=== PATIENT | male | born 1950 | race American Indian/Alaskan Native ===

== ENCOUNTER 2016-05-29 16:14 | Inpatient (IN) | payer OTHER ==
[~2016-05-29] VITALS: Ht 175.3 cm; Wt 62.8 kg
--- NOTE | ~2016-05-29 | EKG ---
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
--- NOTE | ~2016-05-29 | EKG ---
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 : 1950 Requested By: Jhoan Carpenter Order Number: [id number] MD: Los Poe Measurements Intervals [place] Rate: 97 P: 74 TN: 148 QRS: 64 QRSD: 105 T: 48 QT: 417 QTc: 530 Interpretive Statements Sinus rhythm ST elevation, consider pericarditis Prolonged QT interval Baseline wander in lead(s) V6 Compared to ECG 06/03/2016 14:51:57 ST segment elevation is more pronounced Electronically Signed On 06-04-2016 8:55:57 CDT by Los Poe [email or web address] <ELECTRONICALLY SIGNED> By: Los Poe MD, [facility] 06/04/16 0855 0644 0644 Los Poe MD, [facility] /EPI
--- NOTE | ~2016-05-29 | O ---
[facility] [place] [address] OPERATIVE REPORT Name: JANESSA MCCRAY Room #: 217-P [facility] IN M.R.#: [id number] Admission: 05/29/16 Attend Phys: Ady Dean MD Discharge: 06/09/16 Date of : 50 Report #: [id number] THIS REPORT FOR: //name// CC: SERVANDO physician/PCP Ady Dean DATE OF SERVICE: 06/03/2016 PREOPERATIVE DIAGNOSIS: Coronary artery disease. POSTOPERATIVE DIAGNOSIS: Coronary artery disease. OPERATION: Coronary artery bypass x 4 including left internal mammary artery to left anterior descending artery, saphenous vein to ramus intermedius and marginal and saphenous vein to posterior descending artery and endoscopic harvest, left greater saphenous vein. SURGEON: Teofilo Ta MD SALES EXHIBITOR: Jayden. ANESTHESIA: General. INDICATION: The patient is a 65-year-old who was admitted with a syncopal episode. The patient sustained a humeral fracture during this. He was found to have severe 3-vessel coronary artery disease including subtotal occlusion of the right coronary, total occlusion of a marginal artery and high-grade lesions in the ramus intermedius and a long tubular mid LAD stenosis. Left ventricular function is satisfactory. FINDINGS AND TECHNIQUE: After general anesthesia was established, saphenous vein was harvested using an endoscopic approach. Exposure was obtained through median sternotomy. Left internal mammary artery was harvested from chest wall. Pericardial well was made. Cannulation sutures were placed. Heparin was given. Aorta was cannulated. Right atrium was cannulated. Cardioplegia needle was positioned in the aortic root. Retrograde cardioplegic catheter was placed in the coronary sinus. Cardiopulmonary bypass was established. The aorta was cross clamped. Antegrade, then retrograde cardioplegia were given. Ice was poured in the pericardial well. The heart was stopped. During electromechanical arrest, the distal anastomoses were performed and end-to-side anastomosis was made between vein and the posterior descending artery. This was a 1.5 mm vessel. Cold cardioplegia was given. A separate segment of vein was sewn in end-to-side fashion to the large marginal. This was an occluded vessel, but was good target, were bypassed and was approximately 1.6 [facility] [address] [place] [address] OPERATIVE REPORT Name: JANESSA MCCRAY Room #: 217-P [facility] IN [facility].#: [id number] Admission: 05/29/16 Attend Phys: Ady Dean MD Discharge: 06/09/16 Date of : 50 Report #: [id number] mm. Cold cardioplegia was given. Same segment of vein was sewn in [id number] fashion to the large ramus intermedius. This was a 1.7 mm target. Cold cardioplegia was given. Left internal mammary artery was sewn in end-to-side fashion to the left anterior descending artery. This was beyond that long tibial and mid LAD lesion. The LAD was approximately 1.6 mm, were bypassed. Good flow was ascertained with the temperature technique. Cold cardioplegia was given. Two proximal anastomoses were performed. When these were complete, warm retrograde cardioplegia was given followed by warm continuous blood to the coronary sinus. When this infusion was complete, the crossclamp was removed, de-airing maneuvers were performed. The anastomoses were inspected and found to be satisfactory. As the patient warmed, nice cardiac activity resumed, chest tubes and pacing wires were placed, a marker was placed around the proximal anastomoses. When the patient was warmed, he was weaned from cardiopulmonary bypass. Venous cannula was removed. Protamine was given, the aortic cannula was removed. Flows were measured in the bypass grafts. Flow in the graft to the right side was 18 mL per minute. Flow in the graft to the left side was 56 mL per minute. A good Doppler signal was audible in the internal mammary artery. Total cross clamp time was 88 minutes. Total pump time was 108 minutes. When hemostasis was satisfactory, chest was irrigated with antibiotic solution and closed in the usual fashion. The patient was taken to the Intensive Care Unit in good condition having tolerated the procedure well. <ELECTRONICALLY SIGNED> By: Teofilo Ta MD 06/12/16813 09 37 Teofilo Ta MD /nt
--- NOTE | ~2016-05-29 | EKG ---
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 : 1950 Requested By: Teofilo Ta Order Number: [id number] MD: Los Poe Measurements Intervals [place] Rate: 76 P: 72 AR: 162 QRS: 65 QRSD: 107 T: 58 QT: 434 QTc: 489 Interpretive Statements Sinus rhythm ST elevation, consider pericarditis Baseline wander in lead(s) V6 Compared to ECG 06/04/2016 06:44:34 no significant change was found Electronically Signed On 06-07-2016 9:40:15 CDT by Los Poe [email or web address] <ELECTRONICALLY SIGNED> By: Los Poe MD, [facility] 06/07/16 0940 0656 0656 Los Poe MD, [facility] /EPI
--- NOTE | ~2016-05-29 | EKG ---
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
--- NOTE | ~2016-05-29 | CATHLAB ---
[place] [address] [employer] [place] [address] INVASIVE PROCEDURE REPORT Name: JANESSA Room #: 313-P [facility] IN [facility]#: [id number] Admission: 05/29/16 Attend Phys: Ady Dean MD Discharge: Date of : 50 Date of Service: 05/31/16 1200 Report #: [id number] THIS REPORT FOR: //name// CC: SERVANDO physician/PCP Ady Dean DATE OF SERVICE: 05/31/2016 INDICATION: This is a 65-year-old male patient with diabetes and non-ST segment elevation myocardial infarction. PROCEDURES: 1. Left heart catheterization. 2. Selective left and right coronary angiography. 3. Measurement of left ventricular end diastolic pressures. AIR QUALITY CHEMIST: Mahesh Chatman MD BRIEF DESCRIPTION OF PROCEDURE: After informed consent was obtained, the patient was brought to the cardiac catheterization laboratory in stable condition. The patient's right groin was prepped and draped in the usual sterile manner after which lidocaine was then instilled. Utilizing a modified Seldinger technique, the right femoral artery was then accessed. Under fluoroscopic visualization using selective coronary catheters, the right and left coronaries were opacified and visualized. The left ventriculogram was likewise imaged per standard protocol with EDP being measured. Subsequent to this, the sheath was removed, hemostasis achieved. The patient tolerated the procedure well. There were no complications. FINDINGS: 1. RHYTHM: The patient's rhythm was sinus throughout the entire procedure. 2. HEMODYNAMICS: A. Opening aortic pressure: 201/103. B. Left ventricular end diastolic pressures 20-25. C. Post-procedure aortic pressure: 167/98. 3. FLUOROSCOPY: Under fluoroscopic visualization, there was evidence of calcific plaquing on the epicardial coronary arteries. No calcific plaquing on the valvular or intramyocardial structures of the heart. 4. ANGIOGRAPHY: This is a right coronary dominant system. A. Left main is normal origin and caliber, has 30-40% luminal irregularities as it bifurcates into left anterior descending and left circumflex coronary artery. B. Left anterior descending is a moderate caliber type 3 vessel which has luminal irregularities of less than 50% in its proximal portion, gives rise to the diagonal branches and has luminal irregularities, do not appear to be flow limiting. In the mid portion of the mid LAD and proximal half of the distal LAD, there is a segment of disease that culminates with a region of 75% [facility] [address] [place] [address] INVASIVE PROCEDURE REPORT Name: JANESSA MCCRAY Room #: 313-P [facility] IN [facility].#: [id number] Admission: 05/29/16 Attend Phys: Ady Dean MD Discharge: Date of : 50 Date of Service: 05/31/16 1200 Report #: [id number] stenosis. This appears to be at least 30-35 mm in length. The vessel reconstitutes, hooks the apex and terminates in the posterior aspect of the left ventricle. D. Circumflex is a moderate caliber vessel, which has diffuse moderate irregularities throughout its course. Proximally has a focal 70% lesion. The first marginal branch fills the hetero and homocollateral as a vessel and is felt poorly occluded proximally. The terminal circumflex continues in the AV groove posteriorly free of high-grade disease. E. Right coronary artery is of normal origin and caliber and has diffuse moderate irregularities in its proximal course until prior to the acute margin whether there is a 95-99% eccentric lesion. The vessel reconstitutes itself posteriorly giving rise to posterior descending artery and posterior wall circulation. The posterior descending artery has a proximal portion that appears to be 50% . IMPRESSION: 1. Coronary artery disease, severe 3-vessel with an elevated SYNTAX score. 2. Abnormal hemodynamics with presence of systemic hypertension and mildly elevated left ventricular end-diastolic pressures. <ELECTRONICALLY SIGNED> By: Mahesh Chatman MD 05/31/16 1352 1200 1321 Mahesh Chatman MD /nt
--- NOTE | ~2016-05-29 | 2DMMODE ---
[facility] [address] [place] [address] 2 D/M-MODE ECHOCARDIOGRAM Name: JANESSA MCCRAY Room #: 313-P [facility] IN [facility]#: [id number] Admission: 05/29/16 Attend Phys: Ady Dean MD Discharge: Date of : 50 Date of Service: 05/30/16 1052 Report #: [id number] THIS REPORT FOR: //name// APPROVED REPORT Study performed: 05/30/2016 09:38:36 EXAM: Comprehensive 2D, Doppler, and color-flow Echocardiogram Patient Location: Bedside Blood Pressure: 187/89 mmHg HR: 83 bpm Other Information Study Quality: Good Indications Diabetes Hypertension/HDD 2D Dimensions RVDd: 29.36 mm LVEF(%): 52.08 (>50%) IVSd: 8.62 (7-11mm) LVOT Diam: 19.00 (18-24mm) LVDd: 43.67 mm PWd: 10.02 (7-11mm) Ascending Aorta: 32.82 mm LVDs: 32.10 (25-40mm) IVC: 14.00 mm Aortic Root: 35.15 mm Lovell's LVEF: 52.08 % Volumes Left Atrial Volume (Systole) Single Plane 4CH: 31.22 mL Single Plane 2CH: 27.00 mL LA ESV Index: 20.00 mL/m2 Aortic Valve AoV Peak Mihai.: 1.15 m/s AO Peak Gr.: 5.25 mmHg LV Max P.20 mmHg LV Max: 0.89 m/s Mitral Valve MV PHT: 56.87 ms MV E Max Mihai.: 0.77 m/s E/A Ratio: 0.7 MV A Mihai.: 1.13 m/s MV Decel. Time: 196.09 ms [facility] [place] [address] 2 D/M-MODE ECHOCARDIOGRAM Name: JANESSA MCCRAY [place] Room #: 313-P ADM IN M.R.#: [id number] Admission: 05/29/16 Attend Phys: Ady Dean MD Discharge: Date of : 50 Date of Service: 05/30/16 1052 Report #: [id number] Pulmonary Valve PV Peak Mihai.: 0.95 m/s PV Peak Gr.: 3.59 mmHg Tricuspid Valve RAP Estimate: 5.00 mmHg Left Ventricle The left ventricle is normal size. There is normal LV segmental wall motion. There is normal left ventricular wall thickness. Left ventricular systolic function is normal. The left ventricular ejection fraction is within the normal range. LVEF is 50-55%. Grade I - abnormal relaxation pattern. Right Ventricle The right ventricle is normal size. The right ventricular systolic function is normal. Atria The left atrium size is normal. The right atrium size is normal. Aortic Valve The aortic valve is normal in structure. Aortic valve is calcified. No aortic regurgitation is present. There is no aortic valvular stenosis. Mitral Valve The mitral valve is normal in structure. Trace mitral regurgitation. Tricuspid Valve The tricuspid valve is normal in structure. There is no tricuspid valve regurgitation noted. Pulmonic Valve The pulmonary valve is normal in structure. There is no pulmonic valvular regurgitation. Great Vessels The aortic root is normal in size. IVC is normal in size and collapses >50% with inspiration. Pericardium There is no pericardial effusion. [facility] [place] [address] 2 D/M-MODE ECHOCARDIOGRAM Name: HIGHJANESSA TESSA Room #: 313-P [facility] IN .R.#: [id number] Admission: 05/29/16 Attend Phys: Ady Dean MD Discharge: Date of : 50 Date of Service: 05/30/16 1052 Report #: [id number] <Conclusion> The left ventricle is normal size. LVEF is 50-55%. The aortic valve is normal in structure. Aortic valve is calcified. Trace mitral regurgitation. <ELECTRONICALLY SIGNED> By: Mahesh Chatman MD 05/30/16 1052 51 1052 Mahesh Chatman MD /INF
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
--- NOTE | ~2016-05-29 | HC ---
[facility] [place] [address] CONSULTATION Name: JANESSA MCCRAY Room #: 216-P ADM IN M.R.#: [id number] Admission: 05/29/16 Attend Phys: Ady Dean MD Discharge: Date of : 50 Report #: [id number] THIS REPORT FOR: //name// CC: SERVANDO physician/PCP Ady Dean DATE OF SERVICE: 05/30/2016 CHIEF COMPLAINT: Right humerus fracture. HISTORY OF PRESENT ILLNESS: This 65-year-old gentleman with cardiovascular disease and diabetes lives independently. He apparently fainted and fell, landing on the right shoulder. X-rays confirm a short oblique fracture in the proximal metaphyseal region with mild displacement. The shoulder itself and the rest of the bony architecture looks okay. At the time of my evaluation, he is alert and oriented. He seems to be reasonably comfortable protecting the arm in a sling. He denies any other areas of significant musculoskeletal discomfort. He seems to have satisfactory movement of the neck and back. The left upper extremity reveals good alignment and range of motion without much discomfort. The right shoulder is uncomfortable to palpation and with any gentle movement. There is no obvious deformity and there is only moderate swelling about the upper arm. The elbow, forearm, wrist and hand appear to be normal when tested with gentle range of motion. Neurologic and vascular status appeared to be intact. He denies any symptoms with regard to the lower back, hips or lower extremities. X-rays of the right humerus reveal a slightly displaced oblique fracture in the proximal metaphyseal region about 3-4 cm below the surgical neck. The rest of the humerus looks okay. I have discussed this at some length with the patient reviewing treatment options including conservative nonsurgical management with a sling and fracture brace or surgical repair. While I think surgical repair would allow more rapid return to function and comfort, I am concerned as he has other medical and cardiac problems. At this point, I believe he is scheduled for a cardiac catheterization tomorrow. He is certainly not a candidate for an anesthetic and surgery until his cardiac issues can be evaluated and resolved. At this point, the patient states he would prefer to avoid any surgery and wants to continue with arm sling protection alone. We will start with that approach and see how he does over the coming few days and see what the response is with regard to his cardiac evaluation. If he should be stable from a general medical and cardiac [address] [address] CONSULTATION Name: JANESSA MCCRAY Room #: 216-P [facility] IN .R.#: [id number] Admission: 05/29/16 Attend Phys: Ady Dean MD Discharge: Date of : 50 Report #: [id number] point of view and feels he is not doing well with the conservative approach, then we could certainly consider surgical repair sometime next week. <ELECTRONICALLY SIGNED> By: Fahad Mai MD 06/02/16 1050 1035 1720 Fahad Mai MD /nt
--- NOTE | ~2016-05-29 | HC ---
[facility] [place] [address] CONSULTATION Name: JANESSA Room #: 217-P [facility] IN ..#: [id number] Admission: 05/29/16 Attend Phys: Ady Dean MD Discharge: 06/09/16 Date of : 50 Report #: [id number] THIS REPORT FOR: //name// CC: SERVANDO physician/PCP Ady Dean DATE OF SERVICE: 05/31/2016 HISTORY OF PRESENT ILLNESS: We were asked to see the patient by Dr. Chatman. The patient is a 65-year-old with coronary artery disease. The patient was admitted on 05/29 after a syncopal episode. The patient fell when he was walking out of his bathroom and "blacked out". The patient fell onto his right shoulder and he sustained a humerus fracture. We note that since admission, the patient was found to have elevated troponin as part of the workup and this led to cardiac catheterization that showed severe 3-vessel coronary disease including a 70% mid LAD lesion, 90% circumflex, 99% first marginal and 99% right coronary lesions. Left ventricular function satisfactory by echo. PAST MEDICAL HISTORY: Past history is significant for diabetes mellitus, poorly controlled, non-insulin dependent. HOME MEDICATIONS: None. ALLERGIES: None known. SOCIAL HISTORY: The patient claims he smokes a few cigarettes daily. FAMILY HISTORY: Not significant. REVIEW OF SYSTEMS: CONSTITUTIONAL: No fever or chills, malaise. EYES: No eye pain, visual change. HEENT: Negative for hearing changes, ear pain, neck pain or stiffness. RESPIRATORY: Negative for cough, shortness of breath or hemoptysis. CARDIAC: Negative for angina or palpitations. GASTROINTESTINAL: Negative for nausea, vomiting, diarrhea or blood. GENITOURINARY: Negative for burning, frequency or blood. MUSCULOSKELETAL: As mentioned, right shoulder pain related to fall. No other myalgias or weakness. NEUROLOGIC: As mentioned, loss of consciousness, but no sustained motor or sensory deficit. SKIN: No rash or infection. PHYSICAL EXAMINATION: [facility] [address] [place] [address] CONSULTATION Name: JANESSA MCCRAY VERONA Room #: 217-P [facility] IN ..#: [id number] Admission: 05/29/16 Attend Phys: Ady Dean MD Discharge: 06/09/16 Date of : 50 Report #: [id number] VITAL SIGNS: Temperature 36.7, pulse rate 94, respiratory rate 16 and blood pressure 155/98. HEENT: No scleral icterus. No arcus. Pupils are round and equal. Gaze conjugate. Normocephalic. No oral injection. No nasal injection. NECK: No lymphadenopathy, no bruit. CHEST: Clear to auscultation. HEART: Rhythm regular. No murmurs. ABDOMEN: Soft. No mass, no tenderness. EXTREMITIES: No clubbing, cyanosis or edema. A 2+ dorsalis pedis pulses. Saphenous vein appears satisfactory. SKIN: No rash or infection. MUSCULOSKELETAL: Right arm is in sling and swathe. Other than that, no other bone or joint deformity or dyssymmetry. NEUROLOGIC: No motor or sensory dysfunction. PSYCHIATRIC: Mood is neither artificially elevated nor flat, shows insight into problem. ASSESSMENT: The patient has important 3-vessel coronary disease that was manifested by or exposed by the syncopal episode. I do not see that the fracture should be a contraindication to care and I will discuss timing of surgery with Dr. Chatman, but we are prepared to go ahead on Friday with surgery. Risks and details of all of this were discussed. Options and alternatives were reviewed. The patient understands all of this and agrees with this approach. Thank you for the consult. <ELECTRONICALLY SIGNED> By: Teofilo Ta MD 06/12/16 0814 1413 1435 Teofilo Ta MD /nt
[~2016-05-29 16:14] MED LIST: CEFTIN500 MG PO; COLACE 100 MG100 MG; COLACE100 MG PO; EDTA; FLAGYL500 MG PO; GLIPIZIDE 5 MG T5 MG PO; GLUCOPHAGE1000 MG PO; GLUCOTROL5 MG PO; LOPERAMIDE 2 MG2 M1; NOHOMEMEDICATIONS; NORCO 7.5-3251 EACH PO; ROCEPHIN 1 GM VL1 G1 IV; ROCEPHIN 11 GM/100 M IV; TYLENOL P.M. E1 EAC3 PO; ZPAK PO
[2016-05-29 16:15] VITALS: BP 117/74
[2016-05-29 17:29] LABS: ABSOLUTE NEUTROPHILS 7.2 thou/uL (1.4-8.2); BASOPHILS 1.2 % (0.0-2.0); EOSINOPHILS 1.7 % (0.0-3.0); HEMATOCRIT 31.2 % (42.0-52.0); HEMOGLOBIN 10.2 gm/dL (14.0-18.0); LYMPHOCYTES 14.3 % (24.0-44.0); MCH 26.1 pg (26.0-34.0); MCHC 32.6 g/dL (28.0-37.0); MCV 80.1 fL (80.0-100.0); MONOCYTES 7.8 % (1.0-8.0); PLATELET COUNT 400 thou/uL (150-400); RBC 3.89 mil/uL (4.50-6.00); RDW 13.6 % (10.5-14.5); WBC 9.7 thou/uL (4.0-11.0)
[2016-05-29 17:34] LABS: MANUAL DIFF NO
[2016-05-29 17:38] LABS: CALCIUM 9.1 mg/dL (8.5-10.1); CREATININE 1.8 mg/dL (0.6-1.3); POTASSIUM 4.1 mmol/L (3.5-5.1)
[2016-05-29 17:45] LABS: ALBUMIN 2.8 g/dL (3.4-5.0); TOTAL BILIRUBIN 0.2 mg/dL (<0.1-1.0); TOTAL PROTEIN 7.8 g/dL (6.4-8.2); TROPONIN-I 0.21 ng/mL (<0.04-0.07)
[2016-05-29] MEDS ORDERED: SENNA S TABLET1 EACH PO (17:45)
[2016-05-29] MEDS ORDERED: APAP500 PO (17:46)
[2016-05-29] MEDS ORDERED: SENNA8.6 MG PO (17:47)
[2016-05-29 19:15] VITALS: BP 172/85
[2016-05-29 23:40] VITALS: BP 159/93
[2016-05-30 04:05] VITALS: BP 212/94
[2016-05-30 05:13] VITALS: BP 148/76
[2016-05-30 06:35] LABS: CALCIUM 8.5 mg/dL (8.5-10.1); CREATININE 1.4 mg/dL (0.6-1.3); POTASSIUM 3.3 mmol/L (3.5-5.1)
[2016-05-30 06:44] LABS: HEMATOCRIT 28.2 % (42.0-52.0); HEMOGLOBIN 9.5 gm/dL (14.0-18.0); MCH 26.5 pg (26.0-34.0); MCHC 33.6 g/dL (28.0-37.0); MCV 78.9 fL (80.0-100.0); RBC 3.57 mil/uL (4.50-6.00); RDW 13.7 % (10.5-14.5); WBC 8.4 thou/uL (4.0-11.0)
[2016-05-30 07:35] VITALS: BP 187/89
[2016-05-30 08:44] LABS: CHOLESTEROL 187 mg/dL (<200); HDL CHOLESTEROL 40 mg/dL (>40); LDL CHOLESTEROL 124 mg/dL (<100); TC:HDL 4.7 Ratio (Not establshd); TRIGLYCERIDE 119 mg/dL (<150); VLDL 24 mg/dL (<40)
[2016-05-30 14:08] VITALS: BP 147/85
[2016-05-30 19:09] VITALS: BP 165/86
[2016-05-31] VITALS (11 sets, daily range): BP systolic 121–177; BP diastolic 75–105
[2016-05-31 04:39] LABS: HEMATOCRIT 29.3 % (42.0-52.0); HEMOGLOBIN 9.6 gm/dL (14.0-18.0); MCH 26.3 pg (26.0-34.0); MCHC 32.8 g/dL (28.0-37.0); RBC 3.67 mil/uL (4.50-6.00); RDW 13.2 % (10.5-14.5); WBC 8.2 thou/uL (4.0-11.0)
[2016-05-31 04:54] LABS: CREATININE 1.2 mg/dL (0.6-1.3); POTASSIUM 3.6 mmol/L (3.5-5.1); TROPONIN-I 0.29 ng/mL (<0.04-0.07)
[2016-05-31 17:20] LABS: HEMATOCRIT 31.1 % (42.0-52.0); HEMOGLOBIN 10.3 gm/dL (14.0-18.0); MCH 26.3 pg (26.0-34.0); MCV 79.7 fL (80.0-100.0); RBC 3.9 mil/uL (4.50-6.00); RDW 13.8 % (10.5-14.5); WBC 7.5 thou/uL (4.0-11.0)
[2016-05-31 17:29] LABS: CREATININE 1.3 mg/dL (0.6-1.3); POTASSIUM 3.5 mmol/L (3.5-5.1)
[2016-05-31 17:33] LABS: ALBUMIN 2.8 g/dL (3.4-5.0); TOTAL BILIRUBIN 0.4 mg/dL (<0.1-1.0); TOTAL PROTEIN 7.9 g/dL (6.4-8.2)
[2016-05-31 17:34] LABS: APTT 26.6 Seconds (24.5-32.8); PROTIME 10.3 Seconds (9.3-11.4)
[2016-06-01 03:52] VITALS: BP 148/71
[2016-06-01 04:19] LABS: CREATININE 1.4 mg/dL (0.6-1.3); POTASSIUM 3.6 mmol/L (3.5-5.1)
[2016-06-01 08:05] VITALS: BP 146/83
[2016-06-01 11:30] VITALS: BP 164/81
[2016-06-01 12:52] LABS: URINE BLOOD NEGATIVE (Negative); URINE COLOR YELLOW; URINE GLUCOSE-RANDOM* NEGATIVE (Negative); URINE KETONES 1+ (Negative); URINE LEUKOCYTES-REFLEX NEGATIVE (Negative); URINE PROTEIN (DIPSTICK) TRACE (Negative); URINE UROBILINOGEN 0.2 E.U./dl (0.2-1.0)
[2016-06-01 12:56] LABS: ICTOTEST (BILI CONFIRMATORY) Negative (Negative); URINE BILIRUBIN NEGATIVE (Negative)
[2016-06-01 17:03] LABS: HEMATOCRIT 29.5 % (42.0-52.0); HEMOGLOBIN 9.8 gm/dL (14.0-18.0); MCH 26.3 pg (26.0-34.0); MCHC 33.3 g/dL (28.0-37.0); RBC 3.73 mil/uL (4.50-6.00); RDW 13.5 % (10.5-14.5); WBC 9.4 thou/uL (4.0-11.0)
[2016-06-01 17:18] LABS: APTT 29.5 Seconds (24.5-32.8); PROTIME 10.4 Seconds (9.3-11.4)
[2016-06-01 18:26] VITALS: BP 181/101
[2016-06-01 20:25] VITALS: BP 137/76
[2016-06-02] VITALS (7 sets, daily range): BP systolic 114–152; BP diastolic 59–82
[2016-06-03] VITALS (7 sets, daily range): BP systolic 107–136; BP diastolic 64–83
[2016-06-03 02:48] LABS: HEMATOCRIT 24.2 % (42.0-52.0); MCH 26.3 pg (26.0-34.0); MCV 79.6 fL (80.0-100.0); RBC 3.04 mil/uL (4.50-6.00); RDW 13.2 % (10.5-14.5); WBC 7.4 thou/uL (4.0-11.0)
[2016-06-03 03:00] LABS: CALCIUM 8.5 mg/dL (8.5-10.1); CREATININE 1.4 mg/dL (0.6-1.3); POTASSIUM 3.1 mmol/L (3.5-5.1)
[2016-06-03 03:03] LABS: APTT 29.4 Seconds (24.5-32.8); PROTIME 10.8 Seconds (9.3-11.4)
[2016-06-03 14:02] LABS: POC BE 1 mmol/L (-2.0 to +3.0); POC CA IONIZED 4.7 mg/dL (4.5-5.3); POC FiO2 100 %; POC GLUCOSE 110 mg/dL (70-99); POC HEMOGLOBIN 7.5 g/dL (14.0-18.0); POC POTASSIUM 3.3 mmol/L (3.5-5.1); POC SODIUM 141 mmol/L (136-145); POC pCO2 42.4 mmHg (35.0-45.0); POC pH 7.396 (7.360-7.450)
[2016-06-03 14:02] LABS: POC BE 0 mmol/L (-2.0 to +3.0); POC CA IONIZED 4.4 mg/dL (4.5-5.3); POC FiO2 100 %; POC GLUCOSE 138 mg/dL (70-99); POC HCO3 25.7 mmol/L (22.0-26.0); POC HEMOGLOBIN 6.5 g/dL (14.0-18.0); POC POTASSIUM 4.3 mmol/L (3.5-5.1); POC SODIUM 137 mmol/L (136-145); POC pCO2 50.8 mmHg (35.0-45.0); POC pH 7.313 (7.360-7.450)
[2016-06-03 14:02] LABS: POC BE 0 mmol/L (-2.0 to +3.0); POC CA IONIZED 4.5 mg/dL (4.5-5.3); POC FiO2 100 %; POC GLUCOSE 134 mg/dL (70-99); POC HCO3 25.3 mmol/L (22.0-26.0); POC HEMOGLOBIN 6.1 g/dL (14.0-18.0); POC POTASSIUM 4.6 mmol/L (3.5-5.1); POC SODIUM 139 mmol/L (136-145); POC pCO2 42.9 mmHg (35.0-45.0); POC pH 7.379 (7.360-7.450)
[2016-06-03 14:02] LABS: POC BE 0 mmol/L (-2.0 to +3.0); POC CA IONIZED 4.4 mg/dL (4.5-5.3); POC FiO2 100 %; POC GLUCOSE 135 mg/dL (70-99); POC HCO3 25.4 mmol/L (22.0-26.0); POC HEMOGLOBIN 6.5 g/dL (14.0-18.0); POC POTASSIUM 4.5 mmol/L (3.5-5.1); POC SODIUM 139 mmol/L (136-145); POC pCO2 42.6 mmHg (35.0-45.0); POC pH 7.384 (7.360-7.450)
[2016-06-03 14:02] LABS: POC BE -2 mmol/L (-2.0 to +3.0); POC CA IONIZED 4.9 mg/dL (4.5-5.3); POC FiO2 100 %; POC GLUCOSE 139 mg/dL (70-99); POC HCO3 25.2 mmol/L (22.0-26.0); POC HEMOGLOBIN 7.8 g/dL (14.0-18.0); POC POTASSIUM 3.7 mmol/L (3.5-5.1); POC SODIUM 141 mmol/L (136-145); POC pCO2 53.9 mmHg (35.0-45.0); POC pH 7.277 (7.360-7.450)
[2016-06-03 14:02] LABS: POC BE -3 mmol/L (-2.0 to +3.0); POC CA IONIZED 4.4 mg/dL (4.5-5.3); POC FiO2 100 %; POC GLUCOSE 154 mg/dL (70-99); POC HCO3 22.8 mmol/L (22.0-26.0); POC HEMOGLOBIN 8.5 g/dL (14.0-18.0); POC POTASSIUM 4.5 mmol/L (3.5-5.1); POC SODIUM 139 mmol/L (136-145); POC pCO2 42.8 mmHg (35.0-45.0); POC pH 7.334 (7.360-7.450)
[2016-06-03 14:02] LABS: POC BE -5 mmol/L (-2.0 to +3.0); POC CA IONIZED 4.4 mg/dL (4.5-5.3); POC FiO2 100 %; POC GLUCOSE 141 mg/dL (70-99); POC HCO3 21.6 mmol/L (22.0-26.0); POC HEMOGLOBIN 7.5 g/dL (14.0-18.0); POC POTASSIUM 4.2 mmol/L (3.5-5.1); POC SODIUM 139 mmol/L (136-145); POC pCO2 46.5 mmHg (35.0-45.0); POC pH 7.275 (7.360-7.450)
[2016-06-03 14:02] LABS: POC BE -2 mmol/L (-2.0 to +3.0); POC CA IONIZED 4.3 mg/dL (4.5-5.3); POC FiO2 100 %; POC GLUCOSE 145 mg/dL (70-99); POC HCO3 24.4 mmol/L (22.0-26.0); POC HEMOGLOBIN 6.8 g/dL (14.0-18.0); POC POTASSIUM 4.2 mmol/L (3.5-5.1); POC SODIUM 138 mmol/L (136-145); POC pCO2 48.3 mmHg (35.0-45.0); POC pH 7.312 (7.360-7.450)
[2016-06-03 14:25] LABS: HEMATOCRIT 25.9 % (42.0-52.0); HEMOGLOBIN 8.4 gm/dL (14.0-18.0); MCH 25.5 pg (26.0-34.0); MCHC 32.5 g/dL (28.0-37.0); MCV 78.5 fL (80.0-100.0); RBC 3.3 mil/uL (4.50-6.00); WBC 12.8 thou/uL (4.0-11.0)
[2016-06-03 14:26] LABS: ABG SAMPLE TYPE ARTERIAL; BE(vivo) -4.8 mmol/L (-2 to +3); HCO3 20.9 mmol/L (22.0-26.0); LACTATE 1.38 mmol/L (0.5-2.0); O2(CT) 13.1 mL/dL (15.0-23.0); PO2 210.6 mmHg (80.0-100.0); sO2 99.3 % (92.0-98.0); tCO2 22.1 mmol/L (24.0-30.0)
[2016-06-03 14:27] LABS: STICK SITE ALINE; TIDAL VOLUME 600 ml; pH 7.325 (7.360-7.450)
[2016-06-03 14:37] LABS: CREATININE 1.4 mg/dL (0.7-1.3)
[2016-06-03 18:57] LABS: CALCIUM 8.5 mg/dL (8.5-10.1); CREATININE 1.5 mg/dL (0.7-1.3); POTASSIUM 4.1 mmol/L (3.5-5.1)
[2016-06-03 19:17] LABS: HEMATOCRIT 28.4 % (42.0-52.0); HEMOGLOBIN 9.6 gm/dL (14.0-18.0); MCH 26.1 pg (26.0-34.0); MCHC 33.7 g/dL (28.0-37.0); MCV 77.5 fL (80.0-100.0); RBC 3.67 mil/uL (4.50-6.00); RDW 15.3 % (10.5-14.5); WBC 17.3 thou/uL (4.0-11.0)
[2016-06-03 19:54] LABS: ABG SAMPLE TYPE ARTERIAL; BE(vivo) -7.7 mmol/L (-2 to +3); HCO3 16.9 mmol/L (22.0-26.0); LACTATE 1.32 mmol/L (0.5-2.0); O2(CT) 14.3 mL/dL (15.0-23.0); O2Hb 96.2 % (92.0-98.0); PCO2 31.1 mmHg (35.0-45.0); PO2 96.8 mmHg (80.0-100.0); pH 7.352 (7.360-7.450); sO2 97.2 % (92.0-98.0); tCO2 17.8 mmol/L (24.0-30.0)
[2016-06-03 19:55] LABS: ABG COMMENT CMV; STICK SITE ALINE; TIDAL VOLUME 600 ml
[2016-06-03 20:22] LABS: ABG SAMPLE TYPE ARTERIAL; BE(vivo) -8.2 mmol/L (-2 to +3); HCO3 17.1 mmol/L (22.0-26.0); LACTATE 1.22 mmol/L (0.5-2.0); O2(CT) 14.5 mL/dL (15.0-23.0); O2Hb 95.5 % (92.0-98.0); PCO2 34.4 mmHg (35.0-45.0); PO2 90.2 mmHg (80.0-100.0); sO2 96.3 % (92.0-98.0); tCO2 18.2 mmol/L (24.0-30.0)
[2016-06-03 20:23] LABS: Pressure Support 6 cm H20; STICK SITE ALINE; pH 7.315 (7.360-7.450)
[2016-06-03 21:17] LABS: ABG SAMPLE TYPE ARTERIAL; BE(vivo) -10.3 mmol/L (-2 to +3); HCO3 14.8 mmol/L (22.0-26.0); LACTATE 1.05 mmol/L (0.5-2.0); O2(CT) 13.6 mL/dL (15.0-23.0); O2Hb 91.7 % (92.0-98.0); PO2 70.1 mmHg (80.0-100.0); sO2 92.9 % (92.0-98.0); tCO2 15.7 mmol/L (24.0-30.0)
[2016-06-03 21:18] LABS: Face Shield 40 %; STICK SITE ALINE
[2016-06-04 04:26] LABS: HEMATOCRIT 28.2 % (42.0-52.0); HEMOGLOBIN 9.4 gm/dL (14.0-18.0); MCH 25.9 pg (26.0-34.0); MCHC 33.5 g/dL (28.0-37.0); MCV 77.2 fL (80.0-100.0); RBC 3.65 mil/uL (4.50-6.00); RDW 15.2 % (10.5-14.5); WBC 13.4 thou/uL (4.0-11.0)
[2016-06-04 04:40] LABS: CALCIUM 8.4 mg/dL (8.5-10.1); CREATININE 1.6 mg/dL (0.7-1.3); POTASSIUM 3.4 mmol/L (3.5-5.1)
[2016-06-05] VITALS (8 sets, daily range): BP systolic 109–153; BP diastolic 63–86
[2016-06-05 05:46] LABS: HEMATOCRIT 26.1 % (42.0-52.0); HEMOGLOBIN 8.6 gm/dL (14.0-18.0); MCH 25.9 pg (26.0-34.0); MCHC 33.1 g/dL (28.0-37.0); MCV 78.4 fL (80.0-100.0); RBC 3.33 mil/uL (4.50-6.00); RDW 16.2 % (10.5-14.5); WBC 15.5 thou/uL (4.0-11.0)
[2016-06-05 06:44] LABS: CALCIUM 8.3 mg/dL (8.5-10.1); CREATININE 1.4 mg/dL (0.7-1.3); POTASSIUM 3.7 mmol/L (3.5-5.1)
[2016-06-06] VITALS (7 sets, daily range): BP systolic 131–160; BP diastolic 66–87
[2016-06-07 03:12] VITALS: BP 125/74
[2016-06-07 04:37] LABS: CALCIUM 8.1 mg/dL (8.5-10.1); CREATININE 1.2 mg/dL (0.7-1.3); POTASSIUM 3.6 mmol/L (3.5-5.1)
[2016-06-07 05:28] LABS: HEMATOCRIT 25.4 % (42.0-52.0); HEMOGLOBIN 8.4 gm/dL (14.0-18.0); MCH 25.9 pg (26.0-34.0); MCHC 33.1 g/dL (28.0-37.0); MCV 78.3 fL (80.0-100.0); RBC 3.25 mil/uL (4.50-6.00); RDW 15.7 % (10.5-14.5); WBC 11.6 thou/uL (4.0-11.0)
[2016-06-07 07:54] VITALS: BP 146/75
[2016-06-07 12:18] VITALS: BP 146/80
[2016-06-07 16:00] VITALS: BP 164/85
[2016-06-07 20:35] VITALS: BP 93/48
[2016-06-08 04:26] VITALS: BP 140/84
[2016-06-08 06:35] LABS: HEMATOCRIT 25.3 % (42.0-52.0); HEMOGLOBIN 8.3 gm/dL (14.0-18.0)
[2016-06-08 07:20] VITALS: BP 143/81
[2016-06-08 11:25] VITALS: BP 158/88
[2016-06-08 16:00] VITALS: BP 139/81
[2016-06-09 09:10] VITALS: BP 137/74
[2016-06-09] MEDS ORDERED: LOPRESSOR25 PO (11:16)
[2016-06-09] MEDS ORDERED: FERREX 150 PLU1 EAC1 PO (11:16)
[2016-06-09] MEDS ORDERED: ATORVASTATIN CA40 MG PO (11:16)
[2016-06-09] MEDS ORDERED: ASPIR 8181 MG PO (11:17)
[2016-06-09] MEDS ORDERED: BENAZEPRIL 10 M10 MG PO (11:17)
[2016-06-09] MEDS ORDERED: HYDROCODON-ACE1 EAC7 PO (11:18)
[2016-06-09] MEDS ORDERED: MIRALAX17 GM PO (11:19)
[2016-06-09] MEDS ORDERED: PROTONIX 20 MG20 M1 PO (11:19)
[2016-06-09] MEDS ORDERED: COLACE 100 MG100 MG PO (11:19)
[2016-06-09 12:31] VITALS: BP 137/74
== END 2016-06-09 13:18 | disposition home or self-care (01) | DRG 233 ==
LOC: ER 16:14 → EROBS 18:07 → 3N 18:07 → 2N 06-01 16:19 → TBA 06-03 13:07 → ICU 06-03 14:22 → 2N 06-05 16:31
PROVIDERS: Hospitalist; Internal Medicine; Nurse Practitioner Adult Health; Nurse Practitioner Gerontology; Physician Assistant; Surgery Vascular Surgery
PROC: 4A023N7 Measurement of Cardiac Sampling and Pressure, Left Heart, Percutaneous Approach (ICD-10-PCS; 2016-05-31)
PROC: B2111ZZ Fluoroscopy of Multiple Coronary Arteries using Low Osmolar Contrast (ICD-10-PCS; 2016-05-31)
PROC: B2151ZZ Fluoroscopy of Left Heart using Low Osmolar Contrast (ICD-10-PCS; 2016-05-31)
PROC: 02100Z9 Bypass Coronary Artery, One Artery from Left Internal Mammary, Open Approach (ICD-10-PCS; principal; 2016-06-03)
PROC: 021209W Bypass Coronary Artery, Three Arteries from Aorta with Autologous Venous Tissue, Open Approach (ICD-10-PCS; 2016-06-03)
PROC: 5A1221Z Performance of Cardiac Output, Continuous (ICD-10-PCS; 2016-06-03)
PROC: 06BQ4ZZ Excision of Left Saphenous Vein, Percutaneous Endoscopic Approach (ICD-10-PCS; 2016-06-03)
PROC: 30233N1 Transfusion of Nonautologous Red Blood Cells into Peripheral Vein, Percutaneous Approach (ICD-10-PCS; 2016-06-03)
DX: I21.4 Non-ST elevation (NSTEMI) myocardial infarction (principal); E43 Unspecified severe protein-calorie malnutrition; N17.0 Acute kidney failure with tubular necrosis; K92.0 Hematemesis; K92.2 Gastrointestinal hemorrhage, unspecified; S42.334A Nondisplaced oblique fracture of shaft of humerus, right arm, initial encounter for closed fracture; I24.9 Acute ischemic heart disease, unspecified; I95.1 Orthostatic hypotension; N18.9 Chronic kidney disease, unspecified; E11.22 Type 2 diabetes mellitus with diabetic chronic kidney disease; F17.210 Nicotine dependence, cigarettes, uncomplicated; I25.10 Atherosclerotic heart disease of native coronary artery without angina pectoris; R53.81 Other malaise; W18.39XA Other fall on same level, initial encounter; D50.9 Iron deficiency anemia, unspecified; K59.00 Constipation, unspecified; Y93.89 Activity, other specified; Y92.89 Other specified places as the place of occurrence of the external cause; Z89.421 Acquired absence of other right toe(s); Z68.20 Body mass index [BMI] 20.0-20.9, adult; Y99.8 Other external cause status
CPT/HCPCS: 10078; 10081; 10096; 47000; 47001; 47002; 47297; 48888; 50010; 50249; 50409; 50456; 50498; 50668; 51301; 52131; 53327; 53358; 54118; 56524; 56525; 56526; 56527; 56528; 56531; 56534; 56660; 56805; 56898; 57093; 62110; 62950; 64029; 65002; 65003; 65043; 65090; 65120; 83006

== ENCOUNTER 2016-11-29 15:13 | Inpatient (IN) | payer OTHER ==
[~2016-11-29] VITALS: Ht 175.3 cm; Wt 59.0 kg
[2016-11-29] VITALS (9 sets, daily range): BP systolic 88–124; BP diastolic 41–70
--- NOTE | ~2016-11-29 | HC ---
[facility] [place] [address] CONSULTATION Name: JANESSA MCCRAY Room [facility]: [facility] M.R.[facility] [id number] Admission: 11/29/16 Attend Phys: Ady Dean MD Discharge: Date of : 50 Report #: [id number] THIS REPORT FOR: //name// CC: FAM physician/PCP Ady Dean DATE OF SERVICE: 11/30/2016 INFECTIOUS DISEASE CONSULTATION ATTENDING PHYSICIAN: Dr. Dean. REASON FOR CONSULTATION: Sepsis. HISTORY OF PRESENT ILLNESS: A 66-year-old man. He is admitted with sepsis and left-sided pneumonia. He is started on Levaquin and Zosyn. The patient in the intensive care unit, alert, comfortable, denies pain, nausea, vomiting, diarrhea. REVIEW OF SYSTEMS: Essentially noncontributory. PAST MEDICAL HISTORY: Diabetes mellitus. Status post coronary artery bypass grafting. History of nondisplaced fracture of right humerus. Remote history of amputation, right first through fourth toes. . DRUG ALLERGIES: None listed. MEDICATIONS: The patient is currently on treatment with Levaquin 750 mg IV every 48 hours, Zosyn 2.25 grams IV every 6 hours. He is also receiving treatment with aspirin, iron polysaccharide, subcutaneous heparin, atorvastatin, albuterol, Atrovent inhalation treatments, pressors as needed, hydrocodone p.r.n., acetaminophen p.r.n., polyethylene glycol 17 grams daily, ondansetron p.r.n. The patient has received a single gram of vancomycin on admission as well. SOCIAL HISTORY: See H and P and old records. FAMILY HISTORY: See H and P and old records. REVIEW OF SYSTEMS: As above. PHYSICAL EXAMINATION: GENERAL: Chronically ill-appearing man. VITAL SIGNS: Temperature on admission 97.6, pulse 110, respirations 32, BP 88/52. Currently on no pressors. O2 saturation 95% on supplemental oxygen currently, but according to the records, he is not receiving supplemental [address] [address] CONSULTATION Name: JANESSA MCCRAY TESSA Room #: [address] [place] [address] IN ..#: [id number] Admission: 11/29/16 Attend Phys: Ady Dean MD Discharge: Date of : 50 Report #: [id number] oxygen. HEENT: Carious teeth, missing teeth. Pupils reactive. Conjunctivae normal. NECK: Supple. LUNGS: Crackles, left lung sen. HEART: S1, S2. No gallop or murmur. ABDOMEN: Soft, no masses or megaly. EXTREMITIES: A sling, right fracture humerus. Status post remote amputation, right first through fourth toes. NEUROLOGIC: Grossly within normal limits. LABORATORY DATA: Sodium 139, potassium 4.2, BUN 139, creatinine 5.6, glucose 160. Albumin 1.6 g/dL. Protime 10.9. Fibrinogen 599. WBC 27,600; hemoglobin 7.9 g/dL; platelets 606,000 and no white blood cell count differential done. Procalcitonin 71.8. Urinalysis negative. ABGs: pH 7.36, pCO2 of 30, pO2 of 74, bicarbonate 16.7, lactate 5.1. These set of gases on 2 liters oxygen nasal cannula. MICROBIOLOGY DATA: Sputum and blood cultures are negative at the time of this dictation. RADIOLOGY EVALUATION: Chest x-ray revealed hyperinflation of lungs and development of left mid lung infiltrate compatible with pneumonia. CT scan of the head is pending. ASSESSMENT: 1. Severe sepsis with left middle lobe pneumonia. 2. Acute kidney injury. 3. Severe malnutrition. 4. Status post coronary artery bypass grafting. SUGGESTIONS: Recommend to obtain MRSA screen. Obviously, this patient will not be able to produce any sputum, extremely debilitated. Recommend continuation of treatment with Levaquin and Zosyn. If MRSA screen Zyvox or vancomycin. Dr. Dean, thank you for requesting my suggestions in the care of your patient. <ELECTRONICALLY SIGNED> By: Jose D Mccall MD 12/01/16 0544 0555 2152 Jose D Mccall MD /nt
--- NOTE | ~2016-11-29 | HC ---
[facility] [place] [address] CONSULTATION Name: JANESSA MCCRAY Room #: 245-P ADM IN M.R.#: [id number] Admission: 11/29/16 Attend Phys: Ady Dean MD Discharge: Date of : 50 Report #: [id number] THIS REPORT FOR: //name// CC: SERVANDO physician/PCP Ady Dean DATE OF SERVICE: 11/29/2016 REASON FOR CONSULTATION: Sepsis. Thirty-five minutes critical care time. IMPRESSION: 1. Left lower lobe pneumonia, possible acute. 2. Lactic acidosis/metabolic acidosis. 3. Acute renal failure. We will need to recheck these labs. 4. Leukocytosis. 5. Microcytic anemia. 6. Diabetes. 7. History of tobacco use, quit in April by report. 8. History of hypertension. 9. Diabetes. IV fluids per renal Pulmonary toilet Aerosol therapy PICC line DVT ulcer prophylaxis per ICU protocol Discussed with nurse and RT HISTORY OF PRESENT ILLNESS: A 66-year-old male was brought into hospital secondary to weakness, lives in an assistance living, had not been seen in 24 hours, found in his bed too weak to stand, brought to the Emergency Room. The patient is alert and oriented. He complains of some cough. No fever or chills. No nausea or vomiting. ALLERGIES: TAPE. MEDICATIONS: Included iron, Lipitor, Lopressor, benazepril, aspirin, hydrocodone, Colace. PAST SURGICAL HISTORY: Include bunionectomy, toe amputation, shoulder repair, CABG 2017. FAMILY HISTORY: Positive for diabetes. SOCIAL HISTORY: Positive tobacco, quit in April. Negative ETOH. Per one note says, drinks less than a 6 pack of alcohol per week in the past. [facility] [address] [place] [address] CONSULTATION Name: JANESSA MCCRAY Room #: 245-P [facility] IN M.R.#: [id number] Admission: 11/29/16 Attend Phys: Ady Dean MD Discharge: Date of : 50 Report #: [id number] REVIEW OF SYSTEMS: Diabetes and some confusion in the ER, protein-calorie malnutrition, fracture right humerus, no nausea or vomiting. No loose stools. Positive for diabetes, no hematemesis or hematuria. PHYSICAL EXAMINATION: VITAL SIGNS: On exam, temperature 97.6, pulse 108, respirations 30s, BP 113/61, earlier was down to 86/62. LUNGS: Coarse, left greater than right. HEART: Tachycardic, regular. ABDOMEN: Bowel sounds present. EXTREMITIES: Showed no edema. Moves all extremities. NEUROLOGIC: Alert and was joking earlier with nurse. LABORATORY DATA: A pH 7.36, pCO2 of 30, pO2 of 74, bicarbonate 17. Lactate 5.1, procalcitonin 71.82, lactate 4.3. BUN 166, creatinine 7.9. Chest x-ray showed left infiltrate, positive interstitial changes by appearance. White count 27.6, hemoglobin 7.9 and MCV 76.5. <ELECTRONICALLY SIGNED> By: Sudeep Chau MD 12/01/16 1511 12 1905 Sudeep Chau MD /nt
--- NOTE | ~2016-11-29 | HC ---
[facility] [place] [address] CONSULTATION Name: JANESSA MCCRAY Room #: 245-P ADM IN M.R.#: [id number] Admission: 11/29/16 Attend Phys: Ady Dean MD Discharge: Date of : 50 Report #: [id number] THIS REPORT FOR: //name// CC: SERVANDO physician/PCP Ady Dean DATE OF SERVICE: 11/29/2016 REASON FOR CONSULTATION: Renal failure. HISTORY OF PRESENT ILLNESS: This is a 66-year-old male who was brought in by EMS to the Emergency Room. He was found very weak at home in bed and unable to get up out of bed. He was hypotensive. He is obviously volume depleted. At the point I see him now, he is saying he is thirsty and wants to drink water and does not understand why he cannot get any. He says he has been down at home in bed but too weak to get up out of bed and get to food and fluids. He says this has been going on for several days. He thinks he is passing some urine, but he really cannot tell me much about that. He says it does not look bloody. He says he has no problem voiding. He does not think he has urinary retention. He denies a history of prostate trouble. He has already been given at least 2 if not 3 liters of normal saline in the Emergency Room and here in the Intensive Care Unit. Review of his labs include a BUN of 166, and creatinine is 7.9. The patient has previously shown some mild abnormality in his creatinine level. He was in the hospital here in June 2016 for a rather long period of time. He had coronary artery bypass graft surgery at that time. Creatinine level ran between 1.2 and 1.8 during that hospitalization, mostly in the 1.4 range. The patient says he does not see any seismograph supervisor on a regular basis. He does have longstanding diabetes mellitus. He freely admits that he does not do any management of his diabetes. He is unable to afford his medications. He is unable to afford his monitoring. With that, I am sure he tends to run high sugars. Looking back at his old imaging studies, I see no evidence of any scans of his kidneys. PAST MEDICAL HISTORY: Diabetes mellitus type 2, duration unknown. When he presented in May and June 2016, he actually presented with a right humeral fracture. He was found to have coronary artery disease at that time, and then Dr. Ta did a 4-vessel coronary artery bypass graft surgery on 06/03/2016. That included left internal mammary to left anterior descending artery and saphenous vein graft to the ramus intermedius and marginal and posterior descending arteries. He did well after that. His right humeral fracture is maintained under medical management. He has had amputations previously to 4 toes on his right foot related to chronic infection. He denies history of other operations, although looking back, he has had several other procedures. [address] [address] CONSULTATION Name: HIGHJANESSA WALTERSONT Room #: 245-P [facility] IN M.R.#: [id number] Admission: 11/29/16 Attend Phys: Ady Dean MD Discharge: Date of : 50 Report #: [id number] MEDICATIONS ON ADMISSION: This list is not accurate ____ prior hospitalization. At that time, it showed aspirin 81 mg daily, atorvastatin 40 mg daily, benazepril 10 mg daily, Colace 100 mg daily, iron supplement, metoprolol 25 mg b.i.d. and some MiraLax. The patient really cannot tell me what he is taking at this time, it sounds like he has not been taking much of anything mainly due to cost. ALLERGIES: No known medical allergies. FAMILY HISTORY: Negative for renal disease. SOCIAL HISTORY: The patient apparently lives in a senior living complex. He is single. He is retired. He apparently has at least 1 sister who lives in town here. REVIEW OF SYSTEMS: Complains of being thirsty. He thinks he had some nausea and vomiting at home but says he does not feel that way now. In fact, he is hungry and wants to eat. No diarrhea. Denies abdominal discomfort. No difficulty voiding urine according to him. He has had some mild cough, no dyspnea. He says he has been very weak. He gets so week that he quickly basically goes down after trying to get up. Denies recent visual change. He says his arm pain in the right humeral area is finally improved. He is unaware of fevers, chills or sweats. PHYSICAL EXAMINATION: GENERAL: Very thin, frail-appearing male seen in the Intensive Care Unit. He is awake, alert, responsive and in fact moderately animated. VITAL SIGNS: Most recent blood pressure 113/61, heart rate 108, temperature 37.6, oxygen saturation 90%. HEENT: Exam shows pupils are equal and reactive. Sclerae are nonicteric. Oral mucosa is parched. NECK: Neck veins are not distended. Neck is supple, no adenopathy. CHEST: Shows somewhat coarse breath sounds in left lung field. Mild egophony. Right field is clear. HEART: Has a regular tachycardia. ABDOMEN: Has bowel sounds present. Abdomen is soft and nontender. No organomegaly or masses are palpable. I cannot discern distended bladder. EXTREMITIES: Show significant muscle atrophy diffusely. There is decreased skin turgor. He has had the amputation of 4 toes on the right foot with only the fifth toe still being present. I see no active peripheral ulcers or lesions. He has diminished pedal pulses. LABORATORY DATA: Sodium 141, potassium 5.1, chloride 101, bicarb 20, BUN 166, creatinine 7.9, glucose 268, calcium 9.5. CPK 134. Troponin 0.06. White count 27.6, hemoglobin 7.9, hematocrit 25.2, platelets 606,000. Urinalysis: Specific gravity greater than 1.030, pH 5.0, negative dipstick. [facility] [address] [address] CONSULTATION Name: JANESSA MCCRAY Room #: 245-[facility] IN ..#: [id number] Admission: 11/29/16 Attend Phys: Ady Dean MD Discharge: Date of : 50 Report #: [id number] I reviewed his chest x-ray. It shows a substantial haziness in the left mid lung sen. He has extensive reticular pattern throughout both lung sen, looking very chronic in nature. ASSESSMENT: 1. Acute kidney injury. This is severe. Most of it is prerenal in nature. He was hypotensive and tachycardic. He is dry on exam. He is very thirsty. All of this seems to be the appropriate response. He has gotten some intravenous fluids. We will give him more. We need to give him free access to water in addition. He will be able to help regulate that on his own. We need to make sure he does not have any urine retention or other changes on ultrasound of his kidneys, so we will get an ultrasound. We will get a Patel placed. We will monitor his urine output. Blood pressure appears to be starting to come up with additional volume replacement. In addition, he has likely undergone some osmotic diuresis with his hyperglycemia and uncontrolled sugars. We are going to make sure his sugars get controlled. I do not think he was on the benazepril at home because it does not sound like he has been taking much of anything in the way of medication, so I do not think that is contributing. It does not sound like he has gotten nephrotoxins or any nonsteroidals. 2. Left lung infiltrate. He has been put on broad-spectrum antibiotics. He also has leukocytosis associated with that. 3. Coronary artery disease. About 5 months post coronary artery bypass graft surgery, currently asymptomatic. 4. Longstanding diabetes mellitus. Again, we want to get his sugars regulated. 5. Anemia, which is rather substantial. Workup to get started. Does not need transfusion at this point. 6. Severe debility and some difficulty getting care of himself accomplished. PLAN: 1. We will continue IV normal saline 250 mL per hour. 2. Allow oral intake of fluids ad ibeth. 3. Fractional excretion of sodium. 4. Patel catheter. 5. Renal ultrasound in the morning. 6. To repeat labs in the morning. 7. IV fluids, continuous at a high rate. 8. We will follow along closely in the care of this pleasant patient. <ELECTRONICALLY SIGNED> By: Casey Christopher MD 12/02/16 0643 29 37 Casey Christopher MD /nt
--- NOTE | ~2016-11-29 | EKG ---
[place] [address] [facility] [place] [address] ELECTROCARDIOGRAM REPORT Name: HIGHJANSESA TESSA Room #: [facility] M.R.#: [id number] Admission: Attend Phys: Discharge: Date of : 50 Report #: [id number] THIS REPORT FOR: //name// [facility] ED Test Date: 2016-11-29 Test Time: 15:27:44 Pat Name: JANESSA MCCRAY Department: Room: Gender: M Cash Analyst: Eric QUILES : 1950 Requested By: Emiliano Ariza Order Number: [id number] MD: Esequiel Mccall Measurements Intervals [place] Rate: 107 P: 87 IL: 129 QRS: 84 QRSD: 94 T: -88 QT: 334 QTc: 446 Interpretive Statements Sinus tachycardia Biatrial enlargement Borderline right axis deviation Left ventricular hypertrophy Repol abnrm suggests ischemia, diffuse leads Electronically Signed On 11-29-2016 15:36:08 CDT by Esequiel Mccall [email or web address] <ELECTRONICALLY SIGNED> By: Esequiel Mccall MD 11/29/16 1536 1527 1527 MD CARLOS De
--- NOTE | ~2016-11-29 | HC ---
[facility] [place] [address] CONSULTATION Name: JANESSA MCCRAY Room #: 357-[facility] IN .R.#: [id number] Admission: 11/29/16 Attend Phys: Ady Dean MD Discharge: 12/03/16 Date of : 50 Report #: [id number] THIS REPORT FOR: //name// CC: SERVANDO physician/PCP Ady Dean DATE OF SERVICE: 12/03/2016 HISTORY OF PRESENT ILLNESS: The patient is a 66-year-old male who was apparently not found for approximately 24 hours, was too weak to stand. He was admitted with left-sided pneumonia, elevated white count, creatinine had increased 7.9. He was hypotensive. He was noted to have severe sepsis, acute on chronic renal failure, metabolic encephalopathy. Nephrology has been involved. He has been treated with IV antibiotics. His fluid status has gradually improved with the significant drop in his creatinine close to baseline. He was noted to have some black stools and an EGD on 12/02/2016 showed evidence of severe grade D esophagitis with large ulcerations, most of the esophagus. He is noted to have medical complexity with generalized debilitation. We are seeing him in rehabilitation medicine consultation. PAST MEDICAL HISTORY: 1. Prior right wrist fracture treated nonsurgically. He does have Ovalles brace. 2. He has a history of coronary artery disease with prior coronary artery bypass grafting. 3. Chronic renal failure. 4. Diabetes mellitus type 2. This is noted to be noninsulin dependent. 5. Osteomyelitis, right second, third and fourth toes with amputation 12/17/2010. 6. Interstitial lung disease with pulmonary fibrosis. 7. Orthostatic hypotension. HABITS: Tobacco abuse, one half pack per day since 1989, quit less than 2-year ago. Alcohol use. ALLERGIES: TAPE, BLISTERS. SOCIAL HISTORY: Lives in an apartment. There is an indication of an assisted living apartment, but upon discussion with the patient and sounds like more just a regular independent living apartment. He had a friend I could look in on him and assisting with the brace, but that a friend apparently had a stroke and is no longer able to do that. The patient was premorbidly ambulatory without gait aids. REVIEW OF SYSTEMS: Did not offer any current complaints of chest pain, shortness of breath or abdominal discomfort. He notes he is quite weak and [facility] [address] [place] [address] CONSULTATION Name: JANESSA MCCRAY Room #: 357-P [facility] IN .R.#: [id number] Admission: 11/29/16 Attend Phys: Ady Dean MD Discharge: 12/03/16 Date of : 50 Report #: [id number] debilitated. PHYSICAL EXAMINATION: GENERAL: A 66-year-old male in no obvious distress. VITAL SIGNS: Last recorded temperature is 99, pulse 97, respirations 24, blood pressure 147/66. NEUROLOGIC: He is alert, appears oriented. Facies are symmetric. He has functional range of motion of the left upper extremity without focal weakness. Right upper extremity is in the right arm brace. He appears to have good strength of that right wrist and hands. In his lower extremities, there is no focal calf swelling, functional range of motion, strength is grade 4-/5. He is min assist with sit to stand. He ambulated 2 feet with min assists without assist device. ASSESSMENT: A 66-year-old male with the following problem list: 1. Medical complexity with generalized debilitation. 2. Metabolic encephalopathy appears to be much improved/resolved. 3. Severe sepsis, which has much improved. 4. Pneumonia. 5. Acute on chronic renal failure, much improved. 6. Gastrointestinal bleed with severe grade D esophagitis with large ulcerations, most with esophagitis. EGD 12/02/2016 7. Diabetes mellitus type 2. 8. Protein calorie malnutrition. 9. Hypertension. 10. Hyperlipidemia. PLAN: He is a candidate for an acute in-hospital inpatient rehabilitation stay. From a preadmission screening perspective: 1. Prior level of function is well delineated above. 2. Expect level of improvement would be for the patient to become modified independent with transfers, mobility and ADLs and to return back to the home setting. Speech therapy will assess regarding residual of the encephalopathy. As far as length of stay would anticipate probably at least 10 days to 2 weeks pending progress. 3. Evaluation of the patient's risk for clinical complications would include his multiple medical comorbidities as noted above. 4. Condition that caused the need for rehabilitation would be the medical complexity with generalized debilitation. There may be a component of the metabolic encephalopathy. 5. Treatments needed would include PT, OT and speech therapy initially for a total of 3 hours per day, 5 days per week throughout the duration of the acute inpatient rehabilitation stay. 6. Anticipated discharge destination would be back to the home setting. [facility] [address] [place] [address] CONSULTATION Name: JANESSA MCCRAY Room #: 357-P [facility] IN Jc#: [id number] Admission: 11/29/16 Attend Phys: Ady Dean MD Discharge: 12/03/16 Date of : 50 Report #: [id number] 7. Anticipated post-discharge treatments would include home healthcare therapies once he is ready for discharge back to the home setting. By: [id number] [id number] Fahad Cm MD /PMT
[~2016-11-29 15:13] MED LIST changes: +APAP500 PO; +ASPIR 8181 MG PO; +ATORVASTATIN CA40 MG PO; +BENAZEPRIL 10 M10 MG PO; +COLACE 100 MG100 MG PO; +FERREX 150 PLU1 EAC1 PO; +HYDROCODON-ACE1 EAC7 PO; +LOPRESSOR25 PO; +MIRALAX17 GM PO; +PROTONIX 20 MG20 M1 PO; +SENNA S TABLET1 EACH PO; +SENNA8.6 MG PO
[2016-11-29 16:20] LABS: HEMATOCRIT 25.2 % (42.0-52.0); HEMOGLOBIN 7.9 gm/dL (14.0-18.0); MCHC 31.3 g/dL (28.0-37.0); MCV 76.5 fL (80.0-100.0); RBC 3.3 mil/uL (4.50-6.00); WBC 27.6 thou/uL (4.0-11.0)
[2016-11-29 16:23] LABS: URINE BLOOD NEGATIVE (Negative); URINE COLOR YELLOW; URINE GLUCOSE-RANDOM* NEGATIVE (Negative); URINE KETONES NEGATIVE (Negative); URINE LEUKOCYTES-REFLEX NEGATIVE (Negative); URINE PROTEIN (DIPSTICK) NEGATIVE (Negative); URINE SPECIFIC GRAVITY >= 1.030 (1.003-1.035); URINE UROBILINOGEN 0.2 E.U./dl (0.2-1.0)
[2016-11-29 16:26] LABS: URINE BILIRUBIN NEGATIVE (Negative)
[2016-11-29 16:32] LABS: CALCIUM 9.5 mg/dL (8.5-10.1); CREATININE 7.9 mg/dL (0.7-1.3); POTASSIUM 5.1 mmol/L (3.5-5.1)
[2016-11-29 16:37] LABS: TROPONIN-I 0.06 ng/mL (<0.04-0.07)
[2016-11-29 19:20] LABS: ABG SAMPLE TYPE ARTERIAL; BE(vivo) -7.9 mmol/L (-2 to +3); HCO3 16.7 mmol/L (22.0-26.0); PCO2 30.2 mmHg (35.0-45.0); PO2 74.4 mmHg (80.0-100.0); STICK SITE L.BRACHIAL; tCO2 17.6 mmol/L (24.0-30.0)
[2016-11-29 19:21] LABS: O2(CT) 9.8 mL/dL (15.0-23.0); O2Hb 91.3 % (92.0-98.0); sO2 94.7 % (92.0-98.0)
[2016-11-29 23:04] LABS: ALBUMIN 1.6 g/dL (3.4-5.0); POTASSIUM 4.2 mmol/L (3.5-5.1); TOTAL BILIRUBIN 0.2 mg/dL (<0.1-1.0); TOTAL PROTEIN 6.7 g/dL (6.4-8.2); URIC ACID* 13.4 mg/dL (2.6-7.2)
[2016-11-29 23:05] LABS: CALCIUM 7.5 mg/dL (8.5-10.1); CREATININE 5.6 mg/dL (0.7-1.3)
[2016-11-29 23:09] LABS: INR 1.1; PROTIME 10.9 Seconds (9.3-11.4)
[2016-11-29 23:14] LABS: FIBRINOGEN 599.5 mg/dL (210-360)
[2016-11-30] VITALS (29 sets, daily range): BP systolic 83–135; BP diastolic 46–79
[2016-11-30 05:38] LABS: WBC 16.4 thou/uL (4.0-11.0)
[2016-11-30 05:49] LABS: CALCIUM 7.6 mg/dL (8.5-10.1); POTASSIUM 4.2 mmol/L (3.5-5.1)
[2016-11-30 05:53] LABS: CREATININE 4.5 mg/dL (0.7-1.3)
[2016-11-30 05:57] LABS: MCH 23.7 pg (26.0-34.0); MCHC 30.9 g/dL (28.0-37.0); MCV 76.8 fL (80.0-100.0); RBC 2.4 mil/uL (4.50-6.00); RDW 15.2 % (10.5-14.5)
[2016-11-30 06:00] LABS: HEMATOCRIT 18.5 % (42.0-52.0); HEMOGLOBIN 5.7 gm/dL (14.0-18.0)
[2016-11-30 09:45] LABS: % SATURATION 4 % (20-39); IRON 7 ug/dL (65-175); TIBC 157 ug/dL (250-450); UIBC 150 ug/dL
[2016-11-30 14:15] LABS: FOLIC ACID 35.7 ng/mL (8.6-58.9)
[2016-11-30 14:24] LABS: HEMATOCRIT 22.4 % (42.0-52.0); HEMOGLOBIN 7.4 gm/dL (14.0-18.0)
[2016-12-01] VITALS (28 sets, daily range): BP systolic 98–156; BP diastolic 43–76
[2016-12-01 05:17] LABS: CALCIUM 8.1 mg/dL (8.5-10.1)
[2016-12-01 05:20] LABS: CREATININE 2.3 mg/dL (0.7-1.3)
[2016-12-01 05:21] LABS: HEMOGLOBIN 6.9 gm/dL (14.0-18.0)
[2016-12-01 05:22] LABS: HEMATOCRIT 21.4 % (42.0-52.0); MCH 25.2 pg (26.0-34.0); MCHC 32.3 g/dL (28.0-37.0); MCV 78.1 fL (80.0-100.0); RBC 2.74 mil/uL (4.50-6.00); WBC 16.1 thou/uL (4.0-11.0)
[2016-12-01 19:19] LABS: HEMATOCRIT 24.1 % (42.0-52.0); HEMOGLOBIN 7.8 gm/dL (14.0-18.0)
[2016-12-02] VITALS (11 sets, daily range): BP systolic 105–138; BP diastolic 52–72
[2016-12-02 04:46] LABS: HEMATOCRIT 23.6 % (42.0-52.0); HEMOGLOBIN 7.6 gm/dL (14.0-18.0); MCH 25.5 pg (26.0-34.0); MCHC 32.4 g/dL (28.0-37.0); MCV 78.7 fL (80.0-100.0); RBC 2.99 mil/uL (4.50-6.00); RDW 15.5 % (10.5-14.5); WBC 17.9 thou/uL (4.0-11.0)
[2016-12-02 04:57] LABS: ALBUMIN 1.3 g/dL (3.4-5.0); CALCIUM 7.7 mg/dL (8.5-10.1); CREATININE 1.5 mg/dL (0.7-1.3); PHOSPHORUS 1.5 mg/dL (2.5-4.9); POTASSIUM 3.8 mmol/L (3.5-5.1)
[2016-12-03 04:00] VITALS: BP 130/61
[2016-12-03 05:59] LABS: HEMOGLOBIN 6.8 gm/dL (14.0-18.0); RBC 2.67 mil/uL (4.50-6.00)
[2016-12-03 06:00] LABS: HEMATOCRIT 21.1 % (42.0-52.0); MCH 25.4 pg (26.0-34.0); MCHC 32.2 g/dL (28.0-37.0); RDW 16.2 % (10.5-14.5); WBC 16.6 thou/uL (4.0-11.0)
[2016-12-03 06:06] LABS: ALBUMIN 1.3 g/dL (3.4-5.0); CALCIUM 7.7 mg/dL (8.5-10.1); CREATININE 1.4 mg/dL (0.7-1.3); PHOSPHORUS 1.9 mg/dL (2.5-4.9); POTASSIUM 3.1 mmol/L (3.5-5.1)
[2016-12-03 07:39] VITALS: BP 147/66
[2016-12-03] MEDS ORDERED: LEVAQUIN 750 M750 MG PO (11:10)
[2016-12-03] MEDS ORDERED: AUGMENTIN 875-1 EACH PO (11:10)
[2016-12-03 11:20] LABS: URINE BILIRUBIN NEGATIVE (Negative); URINE BLOOD 2+ (Negative); URINE COLOR YELLOW; URINE GLUCOSE-RANDOM* TRACE (Negative); URINE KETONES NEGATIVE (Negative); URINE LEUKOCYTES-REFLEX NEGATIVE (Negative); URINE PROTEIN (DIPSTICK) 1+ (Negative); URINE UROBILINOGEN 0.2 E.U./dl (0.2-1.0)
[2016-12-03 11:34] LABS: SQUAMOUS 0-3 Few /LPF (0-3)
[2016-12-03 11:35] LABS: FINE GRANULAR CASTS 0-3 Few /LPF (None Seen); URINE RBC 3-10 Few /HPF (0-2); URINE WBC-REFLEX 0-5 Rare /HPF (0-5)
[2016-12-03 11:36] LABS: CRYSTALS None Seen /LPF (None Seen)
[2016-12-03 11:40] VITALS: BP 138/59
[2016-12-03 16:12] VITALS: BP 150/80; BP 156/83
== END 2016-12-03 19:15 | DRG 871 ==
LOC: ER 15:13 → ICU 17:35 → EROBS 17:35 → ICU 18:51 → 3W 12-02 14:38
PROVIDERS: Emergency Medicine; Hospitalist; Internal Medicine Nephrology; Internal Medicine Pulmonary Disease
PROC: 02HV33Z Insertion of Infusion Device into Superior Vena Cava, Percutaneous Approach (ICD-10-PCS; principal; 2016-11-29)
PROC: 30243N1 Transfusion of Nonautologous Red Blood Cells into Central Vein, Percutaneous Approach (ICD-10-PCS; 2016-11-30)
PROC: 0DJ08ZZ Inspection of Upper Intestinal Tract, Via Natural or Artificial Opening Endoscopic (ICD-10-PCS; 2016-12-02)
DX: A41.9 Sepsis, unspecified organism (principal); E43 Unspecified severe protein-calorie malnutrition; G93.41 Metabolic encephalopathy; K22.11 Ulcer of esophagus with bleeding; N17.0 Acute kidney failure with tubular necrosis; J13 Pneumonia due to Streptococcus pneumoniae; R65.21 Severe sepsis with septic shock; Z68.1 Body mass index [BMI] 19.9 or less, adult; J44.0 Chronic obstructive pulmonary disease with (acute) lower respiratory infection; F17.210 Nicotine dependence, cigarettes, uncomplicated; D50.9 Iron deficiency anemia, unspecified; I12.9 Hypertensive chronic kidney disease with stage 1 through stage 4 chronic kidney disease, or unspecified chronic kidney disease; I25.10 Atherosclerotic heart disease of native coronary artery without angina pectoris; N18.9 Chronic kidney disease, unspecified; E11.22 Type 2 diabetes mellitus with diabetic chronic kidney disease; E78.5 Hyperlipidemia, unspecified; E83.39 Other disorders of phosphorus metabolism; E87.6 Hypokalemia; R06.6 Hiccough; Z95.1 Presence of aortocoronary bypass graft; Z89.421 Acquired absence of other right toe(s); Z87.81 Personal history of (healed) traumatic fracture; Z79.899 Other long term (current) drug therapy; Z79.82 Long term (current) use of aspirin; Z91.048 Other nonmedicinal substance allergy status
CPT/HCPCS: 10078; 10203; 10779; 27000; 62110; 62900; 70005

== ENCOUNTER 2016-12-03 12:48 | Inpatient (IN) | payer OTHER ==
[~2016-12-03] VITALS: Ht 172.7 cm; Wt 58.6 kg
--- NOTE | ~2016-12-03 | H ---
[facility] [place] [address] HISTORY AND PHYSICAL Name: JANESSA MCCRAY Room #: 512-P ADM IN M.R.#: [id number] Admission: 12/03/16 Attend Phys: Fahad Cm MD Discharge: Date of : 50 Report #: [id number] THIS REPORT FOR: //name// CC: Fahad Cm [facility] physician/PCP DATE OF SERVICE: 12/03/2016 HISTORY OF PRESENT ILLNESS: The patient is a 66-year-old -Gambian male apparently not found for 24 hours, was too weak to stand. He was admitted with left-sided pneumonia, elevated white count, creatinine had increased 7.9. He was hypotensive. He was noted to have severe sepsis, acute on chronic renal failure, metabolic encephalopathy. Nephrology was involved and he was treated with IV antibiotics. His fluids status gradually improved with significant drop in his creatinine close to baseline. He was noted to have some complex stools and an EGD on 12/02/2016 showed evidence of severe grade D esophagitis with large ulcerations, most of the esophagitis. He was noted to have medical complexity with generalized debilitation. He has been admitted for acute in-hospital inpatient rehabilitation. PAST MEDICAL HISTORY: 1. Includes a prior right wrist fracture treated nonsurgically. He has a Ovalles brace. 2. History of coronary artery disease with prior coronary artery bypass grafting. 3. Chronic renal failure. 4. Diabetes mellitus type 2, noted to be noninsulin dependent. 5. Osteomyelitis, right second, third and fourth toes with amputation 12/17/2010. 6. Interstitial lung disease with pulmonary fibrosis. 7. Orthostatic hypotension. HABITS: Tobacco abuse, one-half pack per day since 1989, quit less than 2 years ago. History of alcohol use in the past. ALLERGIES: Tape and blister. SOCIAL HISTORY: Lives in an apartment. There is reference to being in an assisted living facility apartment, but the patient indicates that it is independent living for my discussion with him. He had a friend that could look in on him and assist with the brace but that friend apparently had a stroke and is no longer able to do that. The patient was premorbidly ambulatory without gait aids. REVIEW OF SYSTEMS: Did not offer any current complaints of chest pain, shortness of breath, abdominal discomfort. No focal extremity pain complaints. [address] [address] HISTORY AND PHYSICAL Name: JANESSA MCCRAY TESSA Room #: [facility] IN M.R.#: [id number] Admission: 12/03/16 Attend Phys: Fahad Cm MD Discharge: Date of : 50 Report #: [id number] He realizes that he is quite weak and debilitated. PHYSICAL EXAMINATION: GENERAL: A 66-year-old -Gambian male, in no obvious distress. VITAL SIGNS: Temperature is 98.9, pulse 108, respirations 20, blood pressure 175/92. NEUROLOGIC: The patient is alert, bearded -Gambian male, nasal prong O2 is in place. HEENT: Facies are symmetric. CHEST: Some diffuse decreased breath sounds. CARDIOVASCULAR: Sounded regular rate and rhythm. ABDOMEN: Bowel sounds positive, nontender. GENITOURINARY AND RECTAL: Deferred. EXTREMITIES: He has functional range of motion of the left upper extremity without focal weakness. Right upper extremity, he has the right arm brace. He appears to have good strength of the right wrist and hands. In his lower extremities, there is no focal calf swelling, functional range of motion with strength grade 4-/5. Transfers have been min assist. ASSESSMENT: 1. Medical complexity with generalized debilitation. 2. Metabolic encephalopathy that appears to be much improved/resolved. 3. Severe sepsis, which has much improved. 4. Pneumonia. 5. Acute on chronic renal failure, much improved. 6. Gastrointestinal bleed with severe grade D esophagitis with large ulcerations including most of the esophagitis. 7. Diabetes mellitus type 2. 8. Prior displaced oblique fracture of the right humerus shaft. He has the right Ovalles brace. 9. Hypertension. 10. Hyperlipidemia. PLAN: The patient is admitted for acute in-hospital inpatient rehabilitation. Therapies have been being the patient nonweightbearing on that right upper extremity. We may want to ask Orthopedics to follow up to see if this can be advanced. From a post-admission physician evaluation perspective, there are no relevant changes since the preadmission screening. Please see the above review of prior and current medical and functional conditions and comorbidities. Please see the patient's previous and current functional status. As far as risk of complications, the patient has the multiple above noted comorbidities. Initial plan of care involves the interdisciplinary acute inpatient rehabilitation program with the goal of maximizing the patient's functional independence, so that he can hopefully return back to his prior living situation. [facility] [address] [place] [address] HISTORY AND PHYSICAL Name: JANESSA MCCRAY Room #: 512-P ADM IN M.R.#: [id number] Admission: 12/03/16 Attend Phys: Fahad Cm MD Discharge: Date of : 50 Report #: [id number] functional goals would be for the patient to become modified independent with transfers, mobility and ADLs, so that he can hopefully return back to his prior living situation. Prognosis is reasonably good with estimated length of stay probably at least 10 days to 2 weeks and likely longer if needed. Potential barriers would include the multiple medical comorbidities and decreased functional status. The patient meets diagnostic criteria for an acute in-hospital inpatient rehabilitation stay. He meets medical necessity criteria with the multiple medical comorbidities as noted above. We will be having the event management consultant physicians continue to follow while he is in rehabilitation. He does have the appropriate tolerance for therapies and has appropriate discharge goals back to the home setting. By: [id number] Fahad Cm MD /[facility]
--- NOTE | ~2016-12-03 | D ---
[facility] [place] [address] [place] [address] DISCHARGE SUMMARY Name: JANESSA MCCRAY Room #: 512-P [facility] IN M.R.#: [id number] Admission: 12/03/16 Attend Phys: Fahad Cm MD Discharge: 12/10/16 Date of : 50 Report #: [id number] THIS REPORT FOR: //name// CC: Fahad Cm [facility] physician/PCP DATE OF SERVICE: 12/10/2016 The patient is a 66-year-old -Eritrean male who was originally admitted with left-sided pneumonia, markedly elevated creatinine 7.9, severe sepsis, acute on chronic renal failure. He also was noted to have evidence of grade D esophagitis with large ulcerations, mostly of the esophagus per EGD. He was noted to have medical complexity with generalized debilitation and was admitted for acute inpatient rehabilitation. Please see the full admission note dictation. HOSPITAL COURSE: The patient was involved in the inpatient rehabilitation program. He was progressing with therapies, with transfers, contact guard, gait 150 feet front-wheeled walker, contact guard lower extremity dressing min assist. He was noted to have moderate comprehensive deficits. He was noted to have a decreasing hemoglobin while on rehab with a drop from 6.8 then down to 5.7. He has been transferred off and has been admitted for an acute medical surgical stay for gastroenterology evaluation and EGD. DISCHARGE DIAGNOSES: Include: 1. Medical complexity with generalized debilitation. 2. Worsening anemia with GI evaluation to be undertaken. 3. History of gastrointestinal bleed with severe grade D esophagitis with large ulcerations including most of the esophagus. 4. Metabolic encephalopathy that appear to be improving. 5. Severe sepsis, which had improved. 6. Pneumonia. 7. Acute on chronic renal failure, which had improved. 8. Diabetes mellitus type 2. 9. Prior displaced oblique fracture of the right humerus shaft. The patient was seen by ____ who indicated that he does need to use the brace any more, but should continue to be careful with that right arm. 10. Hypertension. 11. Hyperlipidemia. Discharge medications and activity level are as per the accepting service. By: [id number] Fahad mC MD /PMT
--- NOTE | ~2016-12-03 | PLAN ---
[facility] [place] [address] REHAB UNIT PLAN OF CARE Name: JANESSA MCCRAY Room #: 512-P ADM IN M.R.#: [id number] Admission: 12/03/16 Attend Phys: Fahad Cm MD Discharge: Date of : 50 Report #: [id number] THIS REPORT FOR: //name// CC: Fahad Cm [facility] physician/PCP DATE OF SERVICE: 12/04/2016 The patient is in no distress. Last recorded temperature 36.6, pulse 104, respirations 24, and blood pressure 142/77. Transfers are min assist. Working on dressing activities. He has been max assist for toilet. ASSESSMENT: 1. Medical complexity with generalized debilitation. 2. Metabolic encephalopathy, which appears to be improved/resolved. 3. Severe sepsis, which has much improved. 4. Pneumonia. 5. Acute on chronic renal failure, much improved. 6. Gastrointestinal bleed with severe grade D esophagitis with large ulcerations involving most of the esophagus. 7. Right humerus fracture, 05/29/2016. 8. Protein-calorie malnutrition. 9. Hypertension. 10. Hyperlipidemia. PLAN: The overall plan of care is based on the preadmission screen, post-admission physician evaluation, and information garnered from therapy assessments. 1. Estimated length of stay is probably at least 2 weeks. 2. Medical prognosis is reasonably good. 3. Anticipated interventions include the interdisciplinary acute inpatient rehabilitation program with the goal of maximizing the patient's functional independence, so that he can hopefully return back to his prior living situation. PT and OT will be involved. Rehab nursing will be assisting regarding medication management, skin care prophylaxis, bowel and bladder issues, and nursing education. We will have the outreach consultant physicians involved. 4. Anticipated functional outcomes would be for the patient to become modified independent with transfers, mobility, ADLs, so that he can return back to the home setting. 5. Discharge destination would be back to his apartment. We will need to further assess regarding the level of assistance he will have there. 6. Expected therapy by discipline includes PT and OT 1-1/2 hours per day each five days a week throughout the duration of the acute inpatient rehabilitation stay. ADDENDUM: We will be checking with orthopedics regarding the prior right [address] [address] REHAB UNIT PLAN OF CARE Name: JANESSA MCCRAY TESSA Room #: 512-P ADM IN .R.#: [id number] Admission: 12/03/16 Attend Phys: Fahad Cm MD Discharge: Date of : 50 Report #: [id number] humerus fracture to see if we could no longer use that brace and to reassess if he still has weightbearing precautions. By: 0800 [id number] Fahad Cm MD /PMT
--- NOTE | ~2016-12-03 | HC ---
[facility] [place] [address] CONSULTATION Name: JANESSA MCCRAY Room #: 512-P ADM IN M.R.#: [id number] Admission: 12/03/16 Attend Phys: Fahad Cm MD Discharge: Date of : 50 Report #: [id number] THIS REPORT FOR: //name// CC: Fahad Cm [facility] physician/PCP DATE OF SERVICE: 12/08/2016 DATE OF SERVICE: 12/08/2016 ATTENDING PHYSICIAN: Fahad Cm MD RN OUTPATIENT SURGERY: Driss Lizarraga, PhD CLINICAL PRESENTATION: The patient is a 66-year-old -Mozambican male admitted to the rehabilitation unit at [facility] for comprehensive inpatient rehabilitation program to improve functional mobility, activities of daily living and self-care and mental status secondary to impairment from medical complexity and generalized debility. He was initially admitted to the hospital after 24-hour period of being found down in his apartment. His medical diagnoses include metabolic encephalopathy, severe sepsis, pneumonia, [id number] renal failure, gastrointestinal bleed, diabetes mellitus type 2, prior displaced fracture of the right humerus shaft, hypertension, hyperlipidemia. A complete description of his medical condition and history can be found in his medical record. Neuropsychological consultation was requested to provide assistance in the assessment of cognitive and emotional status and to provide recommendations and services. The patient was living independently in his own apartment at the time of his fall. He has four children. He is . The patient is from a family with four siblings. He has 2 brothers and 1 sister. The patient is a college graduate. He has a degree in Accounting. 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 The patient has not worked for several years. TECHNIQUES UTILIZED: Clinical interview, review of medical records, staff consultation and behavioral observation, mini mental status exam 2 standard version and clock drawing. EXAMINATION FINDINGS: The patient was alert and cooperative with the assessment. He accurately described events surrounding his admission. He does not present with aphasia. There is no report of auditory or visual hallucinations. He describes primarily anxiety in regard to an explanation for his frequent falls. He has fallen numerous times and that his falls are very sudden and he has no explanation for these falls, which has increased his [facility] [address] [place] [address] CONSULTATION Name: JANESSA MCCRAY Room #: 512-P [facility] IN M.R.#: [id number] Admission: 12/03/16 Attend Phys: Fahad Cm MD Discharge: Date of : 50 Report #: [id number] anxiety in regard to walking. He does not report subjective depression. Symptoms include sleep disturbance and fatigue during the day. He denies difficulty with cognition or appetite. He is frustrated with frequent awakening during the evening. His performance is within normal limits on the mini mental status exam. He was 14/16 on the MMSE 2 brief version with a raw score 14 of 16. He was within normal limits on the MMSE 2 standard version with a raw score of 27/30. The patient does present with mild deficits in memory and visual spatial coordination. The patient was unable to accurately set the hands of a clock at a designated time. The time of 10 after 11 was written as 10 to 11. His performance on the cognitive screening suggests executive dysfunction along with an increased anxiety. Variability in memory is also likely. DIAGNOSTIC IMPRESSION: 1. Mild neurocognitive disorder, unspecified, without behavior disorder. 2. Adjustment disorder with anxious mood. RECOMMENDATIONS: The patient will benefit from establishment of compensatory strategies upon his return home to assist in memory and strategies for higher level planning and problem solving. The use of relaxation techniques along with data to verbal reassurance may assist in the management of anxiety. Having a specific strategy or plan in place in regard to ambulation will be an important part of his mental well being upon return home. An evaluation of medication management is also suggested. There is no alcohol abuse or drug related activity that is reported. Thank you very much for allowing me to provide the consultation on this patient. By: [id number] Driss Lizarraga, PhD /nt
--- NOTE | ~2016-12-03 | HC ---
[facility] [place] [address] CONSULTATION Name: JANESSA MCCRAY Room #: 512-P ADM IN M.R.#: [id number] Admission: 12/03/16 Attend Phys: Fahad Cm MD Discharge: Date of : 50 Report #: [id number] THIS REPORT FOR: //name// CC: Fahad Cm [facility] physician/PCP CHIEF COMPLAINT: Healing right proximal humerus fracture. HISTORY OF PRESENT ILLNESS: This 66-year-old gentleman with multiple chronic medical problems is readmitted with pneumonia, acute respiratory failure, renal failure and metabolic encephalopathy. He has a previous history of a fall with right proximal humerus fracture, which I believe occurred in May of this year. At that time, conservative management was recommended. I have seen him on one or more occasions in the past and have continued conservative treatment. He has been using a proximal humeral fracture brace, but recently, he is having no discomfort and has been taking the brace off on a more regular basis. At the time of my evaluation, he is reasonably alert and oriented and seems to understand the situation well. He states he is really not having any significant shoulder or arm discomfort and notes that he has not been wearing the brace recently. Objectively, the right proximal humerus demonstrates slight deformity consistent with his old fracture; however, the fracture seems to be stable. He has surprisingly good movement of the shoulder joint. There is no significant joint crepitus nor much pain. He is moderately weak as he is small and rather cachectic, but in general, muscle tone about the shoulder seems to be satisfactory. The proximal humeral fracture seems to be in good position and stable. Distal neurologic status seems to be within normal limits. X-rays of the right proximal humerus reveal a badly comminuted fracture involving the surgical neck and extending into the upper one-third of the humeral shaft. There is slight offset at the fracture, but there is good callus formation and I think the fracture has healed in in a satisfactory fashion. There is still some remodeling and bone strength is probably not yet as good as we would like. Given this, I think he needs to be careful, but I do not think he needs the fracture brace for routine care at this point. He should be careful to avoid falls and any excessive weightbearing. He can work on gentle range of motion and strengthening as comfort allows. I am happy to follow along or see him in my office once he is discharged for any followup evaluation. <ELECTRONICALLY SIGNED> By: Fahad Mai MD 12/06/16 [id number] Fahad Mai MD /nt
[~2016-12-03 12:48] MED LIST changes: +AUGMENTIN 875-1 EACH PO; +LEVAQUIN 750 M750 MG PO
[2016-12-03 19:30] VITALS: BP 175/92
[2016-12-04 06:46] LABS: HEMATOCRIT 25.8 % (42.0-52.0); HEMOGLOBIN 8.2 gm/dL (14.0-18.0); MCH 25.1 pg (26.0-34.0); MCV 78.3 fL (80.0-100.0); RBC 3.29 mil/uL (4.50-6.00); RDW 16.1 % (10.5-14.5); WBC 29.6 thou/uL (4.0-11.0)
[2016-12-04 07:07] LABS: ALBUMIN 1.4 g/dL (3.4-5.0); CREATININE 1.2 mg/dL (0.7-1.3); PHOSPHORUS 2.2 mg/dL (2.5-4.9); POTASSIUM 3.7 mmol/L (3.5-5.1)
[2016-12-04 07:55] VITALS: BP 142/77
[2016-12-04 10:35] VITALS: BP 154/88
[2016-12-04 20:38] VITALS: BP 107/54
[2016-12-05 06:39] LABS: URINE BILIRUBIN NEGATIVE (Negative); URINE BLOOD 2+ (Negative); URINE COLOR YELLOW; URINE GLUCOSE-RANDOM* NEGATIVE (Negative); URINE KETONES NEGATIVE (Negative); URINE LEUKOCYTES-REFLEX NEGATIVE (Negative); URINE PROTEIN (DIPSTICK) 1+ (Negative); URINE UROBILINOGEN 0.2 E.U./dl (0.2-1.0)
[2016-12-05 06:46] LABS: SQUAMOUS 0-3 Few /LPF (0-3)
[2016-12-05 06:47] LABS: CRYSTALS None Seen /LPF (None Seen); HYALINE CASTS 0-3 Few /LPF (None Seen); URINE RBC 3-10 Few /HPF (0-2); URINE WBC-REFLEX 0-5 Rare /HPF (0-5); YEAST-REFLEX Present (None Seen)
[2016-12-05 08:00] VITALS: BP 106/51
[2016-12-05 16:21] LABS: HEMATOCRIT 24.3 % (42.0-52.0); HEMOGLOBIN 7.8 gm/dL (14.0-18.0); MCH 25.6 pg (26.0-34.0); MCHC 32.3 g/dL (28.0-37.0); MCV 79.2 fL (80.0-100.0); RBC 3.07 mil/uL (4.50-6.00); RDW 16.4 % (10.5-14.5); WBC 17.3 thou/uL (4.0-11.0)
[2016-12-05 16:39] LABS: MANUAL DIFF YES; PLATELET COUNT 320 thou/uL (150-400)
[2016-12-05 17:41] LABS: ABSOLUTE NEUTROPHILS 15.1 thou/uL (1.4-8.2); ANISOCYTOSIS 2+; HYPOCHROMASIA SLIGHT; MICROCYTES 2+; TOTAL CELL COUNT 100
[2016-12-05 17:42] LABS: POLYCHROMASIA OCCASIONAL
[2016-12-05 21:24] VITALS: BP 126/71
[2016-12-06 06:33] LABS: HEMATOCRIT 23.2 % (42.0-52.0); HEMOGLOBIN 7.5 gm/dL (14.0-18.0); MCH 25.5 pg (26.0-34.0); MCHC 32.3 g/dL (28.0-37.0); MCV 78.8 fL (80.0-100.0); RBC 2.94 mil/uL (4.50-6.00); RDW 16.1 % (10.5-14.5); WBC 19.6 thou/uL (4.0-11.0)
[2016-12-06 06:48] LABS: ALBUMIN 1.4 g/dL (3.4-5.0); PHOSPHORUS 1.3 mg/dL (2.5-4.9); POTASSIUM 3.4 mmol/L (3.5-5.1)
[2016-12-06 07:50] VITALS: BP 134/74
[2016-12-06 20:30] VITALS: BP 133/56
[2016-12-07 11:20] VITALS: BP 123/50
[2016-12-07 14:26] VITALS: BP 169/84
[2016-12-07 19:58] VITALS: BP 125/62
[2016-12-08 07:44] VITALS: BP 146/71
[2016-12-08 19:37] VITALS: BP 127/61
[2016-12-09 06:23] LABS: HEMATOCRIT 20.8 % (42.0-52.0); HEMOGLOBIN 6.8 gm/dL (14.0-18.0); MCH 25.6 pg (26.0-34.0); MCHC 32.8 g/dL (28.0-37.0); RBC 2.66 mil/uL (4.50-6.00); RDW 16.5 % (10.5-14.5); WBC 20.2 thou/uL (4.0-11.0)
[2016-12-09 06:32] LABS: MANUAL DIFF YES
[2016-12-09 08:00] VITALS: BP 105/61
[2016-12-09 08:41] LABS: ABSOLUTE NEUTROPHILS 18.4 thou/uL (1.4-8.2); ANISOCYTOSIS 1+; HYPOCHROMASIA 3+; MICROCYTES 2+; PLATELET COUNT 440 thou/uL (150-400); PLATELET ESTIMATE NORMAL; POLYCHROMASIA SLIGHT; TOTAL CELL COUNT 100
[2016-12-09 13:23] LABS: ALBUMIN 1.4 g/dL (3.4-5.0); CALCIUM 7.3 mg/dL (8.5-10.1); CREATININE 1.1 mg/dL (0.7-1.3); POTASSIUM 3.8 mmol/L (3.5-5.1); TOTAL BILIRUBIN 0.1 mg/dL (<0.1-1.0); TOTAL PROTEIN 5.3 g/dL (6.4-8.2)
[2016-12-09 19:58] VITALS: BP 124/66
[2016-12-10 04:03] LABS: ABSOLUTE NEUTROPHILS 11.1 thou/uL (1.4-8.2); MCV 78.5 fL (80.0-100.0); POLYS 78.7 % (36.0-66.0); WBC 14.1 thou/uL (4.0-11.0)
[2016-12-10 04:06] LABS: BASOPHILS 0.4 % (0.0-2.0); EOSINOPHILS 1.4 % (0.0-3.0); LYMPHOCYTES 12.9 % (24.0-44.0); MCH 25.8 pg (26.0-34.0); MCHC 32.8 g/dL (28.0-37.0); MONOCYTES 6.6 % (1.0-8.0); PLATELET COUNT 413 thou/uL (150-400); RBC 2.23 mil/uL (4.50-6.00); RDW 16.7 % (10.5-14.5)
[2016-12-10 04:07] LABS: ALBUMIN 1.3 g/dL (3.4-5.0); CREATININE 1.2 mg/dL (0.7-1.3); MAGNESIUM 1.4 mg/dL (1.8-2.4); POTASSIUM 3.7 mmol/L (3.5-5.1); TOTAL BILIRUBIN 0.2 mg/dL (<0.1-1.0)
[2016-12-10 04:12] LABS: MANUAL DIFF NO
[2016-12-10 04:18] LABS: HEMATOCRIT 17.5 % (42.0-52.0); HEMOGLOBIN 5.7 gm/dL (14.0-18.0)
[2016-12-10 04:23] LABS: CALCIUM 7.9 mg/dL (8.5-10.1); TOTAL PROTEIN 5.9 g/dL (6.4-8.2)
== END 2016-12-10 04:57 | disposition home or self-care (01) | DRG 947 ==
PROVIDERS: Hospitalist; Nurse Practitioner; Physical Medicine & Rehabilitation; Specialist
DX: R53.81 Other malaise (principal); G93.41 Metabolic encephalopathy; E43 Unspecified severe protein-calorie malnutrition; J69.0 Pneumonitis due to inhalation of food and vomit; N17.9 Acute kidney failure, unspecified; Z68.1 Body mass index [BMI] 19.9 or less, adult; K92.2 Gastrointestinal hemorrhage, unspecified; K22.10 Ulcer of esophagus without bleeding; M84.421A Pathological fracture, right humerus, initial encounter for fracture; E78.5 Hyperlipidemia, unspecified; G31.84 Mild cognitive impairment of uncertain or unknown etiology; F43.22 Adjustment disorder with anxiety; E11.9 Type 2 diabetes mellitus without complications; N18.9 Chronic kidney disease, unspecified; E11.22 Type 2 diabetes mellitus with diabetic chronic kidney disease; I12.9 Hypertensive chronic kidney disease with stage 1 through stage 4 chronic kidney disease, or unspecified chronic kidney disease; I25.10 Atherosclerotic heart disease of native coronary artery without angina pectoris; D50.9 Iron deficiency anemia, unspecified; Z23 Encounter for immunization; Z95.1 Presence of aortocoronary bypass graft; Z87.81 Personal history of (healed) traumatic fracture; J44.9 Chronic obstructive pulmonary disease, unspecified
CPT/HCPCS: 10112

== ENCOUNTER 2016-12-10 04:58 | Inpatient (IN) | payer OTHER ==
[~2016-12-10] VITALS: Ht 172.7 cm; Wt 56.7 kg
[2016-12-10 05:40] VITALS: BP 96/50
[2016-12-10 08:03] VITALS: BP 130/64
[2016-12-10 09:23] VITALS: BP 128/65; BP 133/69
[2016-12-10 12:22] VITALS: BP 147/63
[2016-12-10 16:35] VITALS: BP 114/64
[2016-12-10 17:34] LABS: HEMATOCRIT 22.9 % (42.0-52.0); HEMOGLOBIN 7.6 gm/dL (14.0-18.0)
[2016-12-10 21:05] VITALS: BP 118/62
[2016-12-11] VITALS (17 sets, daily range): BP systolic 74–129; BP diastolic 35–79
[2016-12-11 04:08] LABS: ABSOLUTE NEUTROPHILS 12.7 thou/uL (1.4-8.2); EOSINOPHILS 0.9 % (0.0-3.0); HEMATOCRIT 20.2 % (42.0-52.0); HEMOGLOBIN 6.8 gm/dL (14.0-18.0); LYMPHOCYTES 10.6 % (24.0-44.0); MCH 26.7 pg (26.0-34.0); MCHC 33.8 g/dL (28.0-37.0); MONOCYTES 6.1 % (1.0-8.0); PLATELET COUNT 406 thou/uL (150-400); POLYS 81.4 % (36.0-66.0); RBC 2.55 mil/uL (4.50-6.00); RDW 17.3 % (10.5-14.5); WBC 15.6 thou/uL (4.0-11.0)
[2016-12-11 04:09] LABS: MANUAL DIFF NO
[2016-12-11 04:19] LABS: CALCIUM 7.6 mg/dL (8.5-10.1); CREATININE 1.3 mg/dL (0.7-1.3); MAGNESIUM 1.2 mg/dL (1.8-2.4); POTASSIUM 3.4 mmol/L (3.5-5.1)
[2016-12-11 18:26] LABS: HEMOGLOBIN 7.2 gm/dL (14.0-18.0)
[2016-12-11 22:53] LABS: HEMATOCRIT 18.9 % (42.0-52.0); HEMOGLOBIN 6.3 gm/dL (14.0-18.0)
[2016-12-12] VITALS (18 sets, daily range): BP systolic 107–169; BP diastolic 53–79
[2016-12-12 04:09] LABS: HEMATOCRIT 22.3 % (42.0-52.0); HEMOGLOBIN 7.6 gm/dL (14.0-18.0)
[2016-12-12 09:19] LABS: HEMATOCRIT 22.4 % (42.0-52.0); HEMOGLOBIN 7.5 gm/dL (14.0-18.0); MCH 28.1 pg (26.0-34.0); MCHC 33.4 g/dL (28.0-37.0); RBC 2.66 mil/uL (4.50-6.00); RDW 16.5 % (10.5-14.5)
[2016-12-12 09:20] LABS: MANUAL DIFF YES; MCV 84.1 fL (80.0-100.0); PLATELET COUNT 317 thou/uL (150-400)
[2016-12-12 09:56] LABS: ABSOLUTE NEUTROPHILS 14.8 thou/uL (1.4-8.2); ANISOCYTOSIS 1+; TOTAL CELL COUNT 100
[2016-12-12 09:57] LABS: POLYCHROMASIA OCCASIONAL
[2016-12-13] VITALS: BP 111/54
[2016-12-13 04:35] VITALS: BP 131/64
[2016-12-13 06:28] LABS: HEMOGLOBIN 6.6 gm/dL (14.0-18.0); MCHC 33.7 g/dL (28.0-37.0); MCV 86.2 fL (80.0-100.0); RBC 2.27 mil/uL (4.50-6.00); WBC 14.8 thou/uL (4.0-11.0)
[2016-12-13 06:32] LABS: HEMATOCRIT 19.5 % (42.0-52.0)
[2016-12-13 06:44] LABS: ALBUMIN 1.3 g/dL (3.4-5.0); CALCIUM 7.4 mg/dL (8.5-10.1); CREATININE 1.2 mg/dL (0.7-1.3); PHOSPHORUS 1.9 mg/dL (2.5-4.9); POTASSIUM 3.9 mmol/L (3.5-5.1)
[2016-12-13 08:00] VITALS: BP 114/58
[2016-12-13 13:34] VITALS: BP 122/62; BP 124/60
[2016-12-13 19:30] VITALS: BP 128/62
[2016-12-14] VITALS: BP 119/58
[2016-12-14 04:00] VITALS: BP 145/55
[2016-12-14 07:01] LABS: HEMATOCRIT 22.8 % (42.0-52.0); HEMOGLOBIN 7.8 gm/dL (14.0-18.0); MCH 29.5 pg (26.0-34.0); MCHC 34.2 g/dL (28.0-37.0); MCV 86.1 fL (80.0-100.0); RBC 2.65 mil/uL (4.50-6.00); RDW 16.9 % (10.5-14.5)
[2016-12-14 08:56] VITALS: BP 145/61
[2016-12-14 12:19] VITALS: BP 147/72
[2016-12-14 16:53] VITALS: BP 132/72
[2016-12-14 20:00] VITALS: BP 131/66
[2016-12-15 04:00] VITALS: BP 154/73
[2016-12-15 06:10] LABS: ABSOLUTE NEUTROPHILS 8.7 thou/uL (1.4-8.2); BASOPHILS 0.8 % (0.0-2.0); EOSINOPHILS 3.1 % (0.0-3.0); HEMATOCRIT 24.8 % (42.0-52.0); HEMOGLOBIN 8.3 gm/dL (14.0-18.0); LYMPHOCYTES 14.7 % (24.0-44.0); MCH 29.5 pg (26.0-34.0); MCHC 33.5 g/dL (28.0-37.0); MCV 87.8 fL (80.0-100.0); MONOCYTES 4.9 % (1.0-8.0); PLATELET COUNT 350 thou/uL (150-400); POLYS 76.5 % (36.0-66.0); RBC 2.82 mil/uL (4.50-6.00); RDW 17.2 % (10.5-14.5); WBC 11.3 thou/uL (4.0-11.0)
[2016-12-15 06:14] LABS: MANUAL DIFF NO
[2016-12-15 08:56] VITALS: BP 137/77
[2016-12-15 12:16] VITALS: BP 122/56
[2016-12-15 16:19] VITALS: BP 124/72
[2016-12-15 19:35] VITALS: BP 140/70
[2016-12-16 04:00] VITALS: BP 154/79
[2016-12-16 08:10] VITALS: BP 156/81
[2016-12-16] MEDS ORDERED: CARAFATE 1 GM TA1 G1 PO (11:50)
[2016-12-16] MEDS ORDERED: AUGMENTIN 875-1 EACH PO (11:50)
[2016-12-16] MEDS ORDERED: PROTONIX40 M1 PO (11:51)
[2016-12-16 13:08] VITALS: BP 160/85
[2016-12-16 15:42] VITALS: BP 160/85
[2016-12-16 17:05] VITALS: BP 157/87
[2016-12-16 20:00] VITALS: BP 137/69
[2016-12-17 04:00] VITALS: BP 160/81
[2016-12-17 09:37] VITALS: BP 133/77
[2016-12-17 12:20] VITALS: BP 142/78
[2016-12-17 16:13] VITALS: BP 160/85
== END 2016-12-17 17:49 | disposition home health service (06) | DRG 377 ==
LOC: 3W 04:58 → ICU 12-11 12:12 → 3W 12-12 12:46 → ENTRNSPT 12-17 17:39 → 3W 12-17 17:49
PROVIDERS: Hospitalist; Internal Medicine Gastroenterology; Nurse Practitioner; Nurse Practitioner Family
PROC: 0DJ08ZZ Inspection of Upper Intestinal Tract, Via Natural or Artificial Opening Endoscopic (ICD-10-PCS; principal; 2016-12-10)
PROC: 30233N1 Transfusion of Nonautologous Red Blood Cells into Peripheral Vein, Percutaneous Approach (ICD-10-PCS; principal; 2016-12-10)
DX: K92.2 Gastrointestinal hemorrhage, unspecified (principal); J69.0 Pneumonitis due to inhalation of food and vomit; J96.20 Acute and chronic respiratory failure, unspecified whether with hypoxia or hypercapnia; G93.41 Metabolic encephalopathy; E43 Unspecified severe protein-calorie malnutrition; N17.9 Acute kidney failure, unspecified; B37.49 Other urogenital candidiasis; D62 Acute posthemorrhagic anemia; Z68.1 Body mass index [BMI] 19.9 or less, adult; N18.9 Chronic kidney disease, unspecified; I25.10 Atherosclerotic heart disease of native coronary artery without angina pectoris; I12.9 Hypertensive chronic kidney disease with stage 1 through stage 4 chronic kidney disease, or unspecified chronic kidney disease; E78.5 Hyperlipidemia, unspecified; E11.22 Type 2 diabetes mellitus with diabetic chronic kidney disease; K20.9 Esophagitis, unspecified; I95.9 Hypotension, unspecified; Z87.891 Personal history of nicotine dependence; Z95.1 Presence of aortocoronary bypass graft
CPT/HCPCS: 10078; 10779; 70005

== ENCOUNTER 2017-09-20 15:56 | Inpatient (IN) | payer OTHER ==
[~2017-09-20] VITALS: Ht 177.8 cm; Wt 56.5 kg
--- NOTE | ~2017-09-20 | CRIT ---
[facility] [place] [address] CRITICAL CARE NOTE Name: JANESSA MCCRAY Room #: 225-P ADM IN M.R.#: [id number] Admission: 09/20/17 Attend Phys: Charan Cornejo Discharge: Date of : 50 Report #: [id number] THIS REPORT FOR: //name// CC: SERVANDO physician/PCP Charan Cornejo SUBJECTIVE: The patient is a very pleasant male, 67 years of age, who presented yesterday with increasing mental status, confusion, changes and falling at his living facility. I was asked to see him for distended stomach noted on CT abdomen. He is a poor historian, but denies any significant abdominal pain, nausea, vomiting, or change in bowel patterns. Apparently had 2 loose bowel movements overnight. PAST MEDICAL HISTORY: Noted for diabetes, bunionectomy, shoulder surgery, interstitial lung disease with pulmonary fibrosis, osteomyelitis. FAMILY HISTORY: Negative for inflammatory bowel disease or colon cancer. SOCIAL HISTORY: Past alcohol use and a former smoker, never used drugs. REVIEW OF SYSTEMS: Unreliable, but the patient denies head, eyes, ears, nose or throat complaints. Denies chest pain, chest palpitation, chest pressure, cough, shortness of breath, wheezing, genitourinary, musculoskeletal or neuropsychiatric complaints. PHYSICAL EXAMINATION: HEENT: Nonicteric. NECK: No JVD, thyromegaly or bruits. CARDIOVASCULAR: Regular, no murmur. No S3, S4. LUNGS: Coarse with crackles. ABDOMEN: Soft, nondistended, nontender, normoactive bowel sounds. No hepatosplenomegaly. No stigmata of chronic liver disease. No abnormal masses or bruits. EXTREMITIES: No clubbing, cyanosis or edema. NEUROLOGICAL: Deferred. RECTAL: Deferred. PERTINENT LABORATORY DATA: Include white count 15.9, hemoglobin 9.9 down to 6.2 with an MCV of 77, RDW 19.9. He has sed rate of 67. Blood gas 7.36, CO2 37.1, O2 56.1. I do not have chemistry and coagulation 1.1. Serum chemistry notable for sodium 145, potassium 4.2, chloride 98, venous bicarbonate 25, BUN 61, creatinine 4.1. Liver tests normal. Total protein 10.3, albumin 3.8. Imaging reveals CT abdomen, stomach is markedly distended with fluid and fluid in the esophagus, small bowel and duodenum did not appear dilated. There is no mass noted. Suspicion of gastric outlet obstruction. Chest x-ray, no acute abnormalities, marked interstitial fibrosis. Head CT 4 x 5 x 4.5 x 2.[address] [address] CRITICAL CARE NOTE Name: JANESSA MCCRAY NEWHALL Room #: 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 ASSESSMENT AND PLAN: In summary, the patient has a distended stomach by CT suggesting gastric outlet obstruction; however, this could be just an ileus. He has significant metabolic abnormalities with a significant globulin fraction, total protein of 10.3 and an albumin of 3.8. He also has renal failure by lab with a creatinine of 4.1 on presentation. At this point, the significant metabolic abnormalities may contribute to his gastrointestinal ileus. At some point with a hemoglobin of 6.2 with microcytic indices, he will require EGD and colonoscopy. It is unclear as to whether or not he has had these in the past as he is a poor historian and has an altered mental status; however, a gastrointestinal source for his iron deficiency anemia should be excluded. At this point, there is no evidence of significant bleeding. I would proceed with a clear liquid diet and we will monitor closely. Thank you for allowing us to participate in the care of this nice man. <ELECTRONICALLY SIGNED> By: Leroy Foster MD 09/28/17 1029 0921 1258 Jordin Hameed MD /nt
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
--- NOTE | ~2017-09-20 | EKG ---
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 : 1950 Requested By: Nick Parker Order Number: [id number] MD: Los Poe Measurements Intervals [place] Rate: 114 P: 87 RI: 138 QRS: 85 QRSD: 91 T: 267 QT: 334 QTc: 461 Interpretive Statements Sinus tachycardia Nonspecific ST segment abnormality Compared to ECG 11/29/2016 15:27:44 Allowing for differences in technique, probably no significant differences identified Electronically Signed On 09-22-2017 8:09:56 CDT by Los Poe [email or web address] <ELECTRONICALLY SIGNED> By: Los Poe MD, [facility] 09/22/17 0809 1629 28 Los Poe MD, [facility] /EPI
--- NOTE | ~2017-09-20 | PATH ---
[facility] [place] [address] PATHOLOGY RPT PROCEDURE Name: JANESSA MCCRAY Room #: 225-P ADM IN M.R.#: [id number] Admission: 09/20/17 Date of : 50 Discharge: Report #: [id number] Path Case #: [id number] [facility] Accession Number: [id number] . 01 Material submitted: . PART A: TERMINAL ILEUM BX R/O MICROSCOPIC COLITIS PART B: ASCENDING COLON BX R/O MICROSCOPIC COLITIS PART C: DISTAL ASCENDING COLON POLYP PART D: POLYP AT RECTUM PART E: ULCERS AT RECTUM . 01 Clinical history: . Pre-Op DX: Anemia, weight loss, diarrhea Post-Op DX: Colon polyps, rectal ulceration . 02 Diagnosis: A. Small bowel mucosa, terminal ileum rule out microscopic colitis, endoscopic biopsy: - No diagnostic abnormalities present. . B. Large intestinal mucosa, ascending colon rule out microscopic colitis, endoscopic biopsy: - No significant diagnostic abnormalities present. - Negative for active colitis. - Negative for microscopic colitis. - Negative for dysplasia or malignancy. . C. Polyp, distal ascending colon, endoscopic biopsy: - Tubular adenoma. - Negative for high-grade dysplasia. - Inked margin showing unremarkable mucosa. . D. Polyp, at rectum, endoscopic biopsy: - Hyperplastic polyp. - Negative for dysplasia. . E. Large intestinal mucosa, ulcers at rectum, endoscopic biopsy: - Fragments of fibrinopurulent material consistent with ulceration. - Few reactive crypts amidst fragments of ulceration, cannot exclude solitary rectal ulcer (please see comment). - Negative for dysplasia or malignancy. (IUV:bessy; 09/26/2017) QMS/09/26/2017 . 02 Comment: Examination of the "ulcer at rectum" shows fragments of fibrinopurulent material consistent with ulceration. There are a few crypts with reactive [facility] [address] [place] [address] PATHOLOGY RPT PROCEDURE Name: JANESSA MCCRAY TESSA Room #: 225-P [facility] IN M.R.#: [id number] Admission: 09/20/17 Date of : 50 Discharge: Report #: [id number] Path Case #: [id number] changes identified amidst one of the ulcer fragments along with muscularis mucosae and the inflammatory infiltrate. These may represent a solitary rectal ulcer, mucosal prolapse syndrome, or ischemic changes secondary to ischemic bowel, diverticulitis, or due to medication or suppositories. Clinical correlation is suggested. (IUV:bessy; 09/26/2017) . 02 Electronically signed: . Lakesha Stone MD, Pathologist NPI- [id number] . 01 Gross description: . A. Received in formalin labeled "High, Janessa, BX terminal ileum, rule out microscopic colitis," is a single segment of lawrence soft tissue measuring 0.2 cm in maximum dimension. The specimen is entirely submitted in cassette A1. . B. Received in formalin labeled "High, Janessa, BX ascending colon, rule out microscopic colitis," are 2 segments of lawrence soft tissue measuring 0.9 x 0.2 x 0.2 cm in aggregate dimensions and ranging from 0.3 to 0.5 cm in maximum dimension. The specimen is submitted entirely in cassette B1. . C. Received in formalin labeled "High, Janessa, polyp distal ascending colon," is a 1.0 x 0.5-0.4 cm polypoid piece of lawrence soft tissue. The margin is inked and the specimen is sectioned perpendicular to the margin and entirely submitted in cassette C1. . D. Received in formalin labeled "High, Janessa, polyp rectum," is a single segment of lawrence soft tissue measuring 0.4 cm in maximum dimension. The specimen is entirely submitted in cassette D1. . E. Received in formalin labeled "High, Janessa, BX ulcers at rectum," are 3 segments of lawrence soft tissue measuring 0.9 x 0.3 x 0.1 cm in aggregate dimensions and ranging from 0.2 to 0.3 cm in maximum dimension. The specimen is submitted entirely in cassette E1. (TSD; 09/25/2017) TOB/TOB . 02 Pathologist provided ICD-10: D12.2, K62.1, K62.6, D64.9, R19.7, R63.4 . 02 CPT . 755789, 145751, 005693, 020042, 526386 Performed at: [address], [place], [place] [id number] MD Bryce Nogueira MD Phone: [phone] Performed at: 02 [facility] [address] [place] [address] PATHOLOGY RPT PROCEDURE Name: HIGHJANESSAJOSELINE ZARATE Room #: 225-P ADM IN M.R.#: [id number] Admission: 09/20/17 Date of : 50 Discharge: Report #: [id number] Path Case #: [id number] [address] [id number] MD Lakesha Stone MD Phone: [phone]
--- NOTE | ~2017-09-20 | EKG ---
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 : 1950 Requested By: Sudeep Chau Order Number: [id number] MD: Los Poe Measurements Intervals [place] Rate: 84 P: 90 MI: 126 QRS: 87 QRSD: 85 T: 95 QT: 437 QTc: 517 Interpretive Statements Sinus rhythm Nonspecific ST segment abnormality Prolonged QT interval Compared to ECG 11/29/2016 15:27:44 No significant change was found Electronically Signed On 09-22-2017 8:41:14 CDT by Los Poe [email or web address] <ELECTRONICALLY SIGNED> By: Los Poe MD, [facility] 09/22/17 0841 0 0 Los Poe MD, [facility] /EPI
--- NOTE | ~2017-09-20 | HC ---
[facility] [place] [address] CONSULTATION Name: JANESSA MCCRAY Room #: 239-P ADM IN M.R.#: [id number] Admission: 09/20/17 Attend Phys: Charan Cornejo Discharge: Date of : 50 Report #: [id number] THIS REPORT FOR: //name// CC: SERVANDO physician/PCP Charan Cornejo DATE OF SERVICE: 09/21/2017 REASON FOR CONSULTATION: Renal failure. HISTORY OF PRESENT ILLNESS: This is a 67-year-old male who lives in a group home apartment. He was brought into the Emergency Room yesterday after he did not respond to a phone call and was found down. Upon arriving in the Emergency Room, he was found to be hypotensive and had all the laboratory abnormalities as noted above. He was given some fluid, eventually placed on Levophed, and admitted to the Intensive Care Unit. Overnight, we have been consulted because of his elevated creatinine and other electrolyte abnormalities. This is not the first time this has happened to this patient. I saw him in consultation 11/27/2016. He presented then dramatically volume deplete. He had a BUN of 166 and a creatinine of 7.9 at that point. He had been down and had lost access to fluids. He responded to extensive amounts of IV fluids and also oral intake. Within a few days his creatinine level was down to 1.0. His workup revealed nothing other than prerenal azotemia at that time. At this time the patient though, is a bit disoriented. He is unable to really tell me as far as what his intake has been able to be. He has gotten about 3 liters of fluid overnight between the Emergency Room and the ICU. He started making some urine. He has a Patel catheter in place. PAST MEDICAL HISTORY: The patient has longstanding diabetes mellitus, although based upon our evaluation last time does not have much in the way of chronic kidney disease or diabetic nephropathy. He has coronary artery disease and in 06/2016 he underwent 4-vessel coronary artery bypass graft surgery. Just prior to that, he had a right humeral fracture. 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 He has chronic pulmonary fibrosis as is evident from his chest x-ray. Of additional importance is that last fall he was unable to get access to his medications and I am uncertain that he has had any access to his medications this time. He has prescriptions for atorvastatin, pantoprazole, metoprolol, aspirin, but again I am uncertain if he is taking any of that. ALLERGIES: No known medical allergies. FAMILY HISTORY: Negative for renal disease. [address] [address] CONSULTATION Name: JANESSA MCCRAY Room #: 239-P [facility] IN M.R.#: [id number] Admission: 09/20/17 Attend Phys: Charan Cornejo Discharge: Date of : 50 Report #: [id number] SOCIAL HISTORY: The patient lives in a group home apartment. He has a son locally who does check on him. REVIEW OF SYSTEMS: Not much available at this time due to the patient's altered mental status. PHYSICAL EXAMINATION: GENERAL: Very thin 67-year-old male. He does awaken and talks to me some, other words are garbled. VITAL SIGNS: Blood pressure 135/54 on 2 mcg of Levophed, heart rate 94, temperature 97.6, oxygen saturation 97%. HEENT: Shows pupils are 4 mm and reactive. Sclerae nonicteric. Oral mucosa is somewhat dry. NECK: Veins are not distended. Neck is supple, no adenopathy. CHEST: Shows symmetrical breath sounds. No rales, rhonchi or wheezes that I can hear. HEART: Has a regular rate and rhythm bordering on tachycardia. ABDOMEN: Not distended. Very active bowel sounds are present. It is generally nontender, unable to palpate organomegaly or masses. EXTREMITIES: Show no peripheral edema. He has the amputations of the toes of the one foot. He has diminished peripheral pulses. LABORATORY DATA: From the Emergency Room, sodium 145, potassium 4.2, chloride 98, bicarbonate 25, BUN 61, creatinine 4.1, glucose 197, calcium 14.7, total protein 10.3, albumin 3.8, AST 26, ALT 19. Troponin less than 0.06. White count 15.9, hemoglobin 9.9, hematocrit 31.9, platelets 583,000 with 86 neutrophils, 7 lymphs. Urinalysis, specific gravity 1.025, pH 6.5, 2+ protein, trace glucose. Spot urine sodium 45, urine creatinine 284, urine protein creatinine ratio is 0.4. Blood gas on admission, pH 7.36, pCO2 of 37, pO2 of 56, lactate originally 12.94. ASSESSMENT: 1. Acute kidney injury. This is the second episode in the past 10 months. Again, has mostly features of prerenal azotemia with a dramatically low fractional excretion of sodium. He has gotten lot of IV fluids. Blood pressure is starting to improve. Urine output is starting to cone picker as he has had several 100 mL of urine this morning. Creatinine level is already coming down somewhat, and based upon his prior response I would expect this should continue to improve. We will continue his IV fluids. The other issue that is new though is his hypercalcemia and that may be causing some of his change in renal function. 2. Hypercalcemia. A new development. He has a very high globulin fraction on his original labs. That combination would certainly raise the possibility of a paraprotein disorder/multiple myeloma. We will start a workup for that. Overnight, with his normal saline intravenously, his calcium level has improved. Certainly, the hypercalcemia can be contributing to his confusion and decreased [facility] [address] [place] [address] CONSULTATION Name: HIGHJANESSA ZARATE Room #: 239-P [facility] IN .R.#: [id number] Admission: 09/20/17 Attend Phys: Charan Cornejo Discharge: Date of : 50 Report #: [id number] mental status. We will follow along with that as it continues to improve. At this point, since it has already started to come down we will not provide any bisphosphonate. 3. Chronic pulmonary fibrosis. Hypoxemic on admission. Oxygenating better now. 4. Coronary artery disease, 15 months post-4 vessel coronary artery bypass graft surgery. 5. Longstanding diabetes mellitus. 6. He presented with a high lactate and an elevated white count. Cultures have been drawn. On exam, he does not look floridly septic. He has responded to fluids only. He has gotten vancomycin and meropenem and we will certainly follow along with his cultures. I cannot isolate an infection based upon today's evaluation. PLAN: 1. Continue IV normal saline 150 mL per hour. 2. Wean off his Levophed. 3. Follow his cultures. 4. Check a kappa to lambda light chain ratio in his blood, and urine protein electrophoresis. 5. If his calcium level continues to run very high, we could consider a bisphosphonate at that time, but I will not give at this time. 6. Follow up labs later this afternoon. 7. We will follow along with the care of this gentleman. <ELECTRONICALLY SIGNED> By: Casey Christopher MD 09/22/17 0729 0852 1212 Casey Christopher MD /nt
--- NOTE | ~2017-09-20 | PATH ---
[facility] [place] [address] PATHOLOGY RPT PROCEDURE Name: JANESSA MCCRAY Room #: 423-1 ADM IN M.R.#: [id number] Admission: 09/20/17 Date of : 50 Discharge: Report #: [id number] Path Case #: [id number] [facility] Accession Number: [id number] . 01 Material submitted: . PART A: ANTRUM BX R/O HPYLORI PART B: BX DISTAL ESOPHAGUS R/O BARRETTS . 01 Clinical history: . Pre-Op DX: Anemia Post-Op DX: Esophagitis, hiatal hernia, gastritis . 02 Diagnosis: A. Gastric mucosa, antrum rule out H. pylori, endoscopic biopsy: - Mild reactive gastropathy. - Negative for intestinal metaplasia or atrophy. - Negative for Helicobacter pylori (properly controlled immunohistochemical stain performed). . B. Gastric fundic-type mucosa, distal esophagus rule out Lam's, endoscopic biopsy: - Focal specialized columnar epithelium with intestinal metaplasia, compatible with Lam's metaplasia; negative for dysplasia (please see comment). QT/09/24/2017 . 02 Comment: The above diagnosis of Lam's esophagus is made due to presence of intestinal metaplasia and with the assumption that the biopsies were obtained from the columnar mucosa in the distal esophagus located at least 1 cm proximal to the top of the gastric folds as per the 2016 ACG guidelines. (IUV:pit 09/24/2017) . 02 Electronically signed: . Lakesha Stone MD, Pathologist NPI- [id number] . 01 Gross description: . A. Received in formalin labeled "Janessa Mccray, antrum BX, rule out H. pylori," are 2 segments of lawrence soft tissue measuring 0.6 x 0.2 x 0.2 cm in aggregate dimensions and measuring 0.3 cm each in maximum dimension. The specimen is submitted entirely in cassette A1. . B. Received in formalin labeled "Janessa Mccray, distal esophagus BX, rule out Lam's," are 2 segments of lawrence soft tissue measuring 0.7 x 0.3 x 0.2 cm in aggregate dimensions and ranging from 0.3 to 0.4 cm in maximum [facility] [address] [place] [address] PATHOLOGY RPT PROCEDURE Name: JANESSA MCCRAY ALTUS Room #: 423-1 ADM IN M.R.#: [id number] Admission: 09/20/17 Date of : 50 Discharge: Report #: [id number] Path Case #: [id number] dimension. The specimen is submitted entirely in cassette B1. (TSD; 09/23/2017) TOB/TOB . 02 Pathologist provided ICD-10: K31.9, K22.70 . 02 CPT . 378586, [id number], A86053 Performed at: [address], [place] [id number] MD Bryce Nogueira MD Phone: [phone] Performed at: [address] [id number] MD Lakesha Stone MD Phone: [phone]
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
--- NOTE | ~2017-09-20 | 2DMMODE ---
[facility] [address] [place] [address] 2 D/M-MODE ECHOCARDIOGRAM Name: JANESSA MCCRAY TESSA Room #: 239-P ADM IN M.R.#: [id number] Admission: 09/20/17 Attend Phys: Charan Gonzalez Discharge: Date of : 50 Date of Service: 09/22/17 1347 Report #: [id number] THIS REPORT FOR: //name// APPROVED REPORT Study performed: 09/22/2017 12:17:46 EXAM: Comprehensive 2D, Doppler, and color-flow Echocardiogram Patient Location: ICU Room #: 239 Status: routine BSA: 1.59 HR: 75 bpm BP: 155/81 mmHg Other Information Study Quality: Adequate Indications Diabetes Hypertension/HDD 2D Dimensions RVDd: 31.74 mm LVEF(%): 60.92 (>50%) IVSd: 7.84 (7-11mm) LVOT Diam: 22.14 (18-24mm) LVDd: 44.70 mm PWd: 6.20 (7-11mm) Ascending Ao: 40.61 (22-36mm) LVDs: 30.20 (25-40mm) Aortic Root: 31.29 mm IVC: 12.00 mm Lovell's LVEF: 60.92 % Volumes Left Atrial Volume (Systole) Single Plane 4CH: 47.41 mL Single Plane 2CH: 43.52 mL LA ESV Index: 29.00 mL/m2 Aortic Valve AoV Peak Mihai.: 0.91 m/s AO Peak Gr.: 3.33 mmHg LVOT Max P.51 mmHg LVOT Max V: 0.79 m/s SAHIL Vmax: 3.34 cm2 Mitral Valve E/A Ratio: 0.8 MV Decel. Time: 146.[address] [facility] [place] [address] 2 D/M-MODE ECHOCARDIOGRAM Name: JANESSA MINGUS Room #: [address] [place] [address] IN M.R.#: [id number] Admission: 09/20/17 Attend Phys: Charan Gonzalez Discharge: Date of : 50 Date of Service: 09/22/17 1347 Report #: [id number] MV E Max Mihai.: 0.84 m/s MV A Mihai.: 1.05 m/s MV PHT: 42.59 ms IVRT: 156.86 ms Pulmonary Valve PV Peak Mihai.: 0.81 m/s PV Peak Gr.: 2.61 mmHg Left Ventricle The left ventricle is normal size. There is normal left ventricular wall thickness. The left ventricular systolic function is normal. The left ventricular ejection fraction is within the normal range. LVEF is 55-60%. Grade I - abnormal relaxation pattern. Right Ventricle The right ventricle is normal size. The right ventricular systolic function is normal. Atria The left atrium size is normal. The right atrium size is normal. Aortic Valve The aortic valve is normal in structure. No aortic regurgitation is present. There is no aortic valvular stenosis. Mitral Valve The mitral valve is normal in structure. Trace mitral regurgitation. No evidence of mitral valve stenosis. Tricuspid Valve The tricuspid valve is normal in structure. There is no tricuspid valve regurgitation noted. Pulmonic Valve The pulmonary valve is normal in structure. There is no pulmonic valvular regurgitation. Great Vessels The aortic root is normal in size. IVC is normal in size and collapses >50% with inspiration. Pericardium There is no pericardial effusion. <Conclusion> [facility] [address] [place] [address] 2 D/M-MODE ECHOCARDIOGRAM Name: JANESSA MCCRAY TESSA Room #: 239-P ADM IN M.R.#: [id number] Admission: 09/20/17 Attend Phys: Charan Gonzalez Discharge: Date of : 50 Date of Service: 09/22/17 1347 Report #: [id number] The left ventricle is normal size. LVEF is 55-60%. Grade I - abnormal relaxation pattern. The right ventricle is normal size. The left atrium size is normal. The aortic valve is normal in structure. Trace mitral regurgitation. There is no tricuspid valve regurgitation noted. The aortic root is normal in size. There is no pericardial effusion. <ELECTRONICALLY SIGNED> By: Reed Hernández MD, [facility] 09/22/17 1347 134 46 Reed Hernández MD, [facility] /INF
[~2017-09-20 15:56] MED LIST changes: +CARAFATE 1 GM TA1 G1 PO; +PROTONIX40 M1 PO
[2017-09-20 16:02] VITALS: BP 70/45
[2017-09-20 16:32] LABS: ABSOLUTE NEUTROPHILS 13.6 thou/uL (1.4-8.2); BASOPHILS 0.7 % (0.0-2.0); HEMATOCRIT 31.9 % (42.0-52.0); HEMOGLOBIN 9.9 gm/dL (14.0-18.0); LYMPHOCYTES 6.9 % (24.0-44.0); MCH 23.8 pg (26.0-34.0); MCHC 30.9 g/dL (28.0-37.0); MCV 77.1 fL (80.0-100.0); MONOCYTES 6.6 % (1.0-8.0); PLATELET COUNT 583 thou/uL (150-400); POLYS 85.8 % (36.0-66.0); RBC 4.14 mil/uL (4.50-6.00); RDW 19.9 % (10.5-14.5); WBC 15.9 thou/uL (4.0-11.0)
[2017-09-20 16:34] LABS: BE(vivo) -4.3 mmol/L (-2 to +3); HCO3 20.6 mmol/L (22.0-26.0); PCO2 37.1 mmHg (35.0-45.0); PO2 56.1 mmHg (80.0-100.0); pH 7.363 (7.360-7.450); sO2 88.4 % (92.0-98.0)
[2017-09-20 16:38] LABS: ANION GAP 22 mmol/L (7-16); BUN 61 mg/dL (7-18); CHLORIDE 98 mmol/L (98-107); CO2 25 mmol/L (21-32); CREATININE 4.1 mg/dL (0.7-1.3); GLUCOSE 197 mg/dL (74-106); POTASSIUM 4.2 mmol/L (3.5-5.1); SODIUM 145 mmol/L (136-145)
[2017-09-20 16:48] LABS: ALBUMIN 3.8 g/dL (3.4-5.0); SGOT 26 U/L (15-37); TOTAL BILIRUBIN 0.5 mg/dL (<0.1-1.0); TOTAL PROTEIN 10.3 g/dL (6.4-8.2); TROPONIN-I <0.06 ng/mL (<0.06)
[2017-09-20 16:52] LABS: CALCIUM 14.7 mg/dL (8.5-10.1)
[2017-09-20 17:02] LABS: SGPT 19 U/L (30-65)
[2017-09-20 18:04] LABS: APTT 19.7 Seconds (24.5-32.8); FIBRINOGEN 405.3 mg/dL (210-360); INR 1.1; PROTIME 11.4 Seconds (9.3-11.4)
[2017-09-20 19:25] VITALS: BP 94/56
[2017-09-20 19:30] VITALS: BP 120/75
[2017-09-20 21:00] VITALS: BP 122/85
[2017-09-20 21:16] LABS: CREATININE 3.6 mg/dL (0.7-1.3); POTASSIUM 4.7 mmol/L (3.5-5.1)
[2017-09-20 21:24] LABS: CALCIUM 10.8 mg/dL (8.5-10.1)
[2017-09-20 22:00] VITALS: BP 116/73
[2017-09-20 22:29] LABS: URINE BILIRUBIN NEGATIVE (Negative); URINE BLOOD NEGATIVE (Negative); URINE CLARITY CLEAR; URINE COLOR YELLOW; URINE GLUCOSE-RANDOM* NEGATIVE (Negative); URINE KETONES TRACE (Negative); URINE LEUKOCYTES-REFLEX NEGATIVE (Negative); URINE NITRITE-REFLEX NEGATIVE (Negative); URINE PROTEIN (DIPSTICK) 2+ (Negative); URINE SPECIFIC GRAVITY 1.025 (1.005-1.035); URINE UROBILINOGEN 0.2 E.U./dl (0.2-1.0)
[2017-09-20 22:39] LABS: MUCUS 0-3 Light strn/LPF (None Seen); SQUAMOUS None Seen /LPF (0-3); URINE RBC 0-2 Rare /HPF (0-2); URINE WBC-REFLEX None Seen /HPF (0-5)
[2017-09-20 22:40] LABS: BACTERIA-REFLEX None Seen /HPF (None Seen); CRYSTALS None Seen /LPF (None Seen); HYALINE CASTS 0-3 Few /LPF (None Seen)
[2017-09-20 23:00] VITALS: BP 95/62
[2017-09-20 23:39] LABS: PROT/CREAT RATIO 0.4; URINE CREATININE-RANDOM* 284.5 mg/dL; URINE PROTEIN-RANDOM* 113.3 mg/dL (<11.9)
[2017-09-21] VITALS (25 sets, daily range): BP systolic 71–163; BP diastolic 43–98
[2017-09-21 05:03] LABS: WBC 25.2 thou/uL (4.0-11.0)
[2017-09-21 05:04] LABS: ALBUMIN 2.3 g/dL (3.4-5.0); CALCIUM 10.2 mg/dL (8.5-10.1); CREATININE 3.8 mg/dL (0.7-1.3); PHOSPHORUS 3.5 mg/dL (2.5-4.9); TOTAL BILIRUBIN 0.3 mg/dL (<0.1-1.0); TOTAL PROTEIN 6.2 g/dL (6.4-8.2)
[2017-09-21 05:06] LABS: MCH 24.2 pg (26.0-34.0); MCHC 31.6 g/dL (28.0-37.0); MCV 76.6 fL (80.0-100.0); RBC 2.56 mil/uL (4.50-6.00); RDW 19.2 % (10.5-14.5)
[2017-09-21 05:20] LABS: HEMATOCRIT 19.6 % (42.0-52.0); HEMOGLOBIN 6.2 gm/dL (14.0-18.0); PLATELET COUNT 346 thou/uL (150-400)
[2017-09-21 06:37] LABS: ABSOLUTE NEUTROPHILS 23.9 thou/uL (1.4-8.2); ANISOCYTOSIS 1+; HYPOCHROMASIA 2+; PLATELET ESTIMATE NORMAL
[2017-09-21 12:21] LABS: CALCIUM 9.3 mg/dL (8.5-10.1); CREATININE 3.2 mg/dL (0.7-1.3); PHOSPHORUS 2.6 mg/dL (2.5-4.9)
[2017-09-21 13:02] LABS: HEMATOCRIT 18.7 % (42.0-52.0); HEMOGLOBIN 5.5 gm/dL (14.0-18.0)
[2017-09-21 13:08] LABS: GLYCOHEMOGLOBIN (HGB A1C) 5.7 % (4.8-5.6)
[2017-09-21 15:27] LABS: CALCIUM 9.1 mg/dL (8.5-10.1); CREATININE 2.9 mg/dL (0.7-1.3)
[2017-09-21 15:30] LABS: POTASSIUM 4.7 mmol/L (3.5-5.1)
[2017-09-21 19:59] LABS: HEMOGLOBIN 8.6 gm/dL (14.0-18.0)
[2017-09-22] VITALS (8 sets, daily range): BP systolic 108–160; BP diastolic 62–88
[2017-09-22 05:21] LABS: BE(vivo) -6.1 mmol/L (-2 to +3); PCO2 30.7 mmHg (35.0-45.0); pH 7.386 (7.360-7.450); sO2 96.1 % (92.0-98.0)
[2017-09-22 05:27] LABS: ALBUMIN 2.5 g/dL (3.4-5.0); CALCIUM 8.5 mg/dL (8.5-10.1); TOTAL BILIRUBIN 0.5 mg/dL (<0.1-1.0); TOTAL PROTEIN 6.9 g/dL (6.4-8.2)
[2017-09-22 05:36] LABS: CREATININE 1.9 mg/dL (0.7-1.3); POTASSIUM 3.7 mmol/L (3.5-5.1)
[2017-09-22 06:02] LABS: HEMATOCRIT 25.2 % (42.0-52.0); HEMOGLOBIN 8.3 gm/dL (14.0-18.0); MCH 26.8 pg (26.0-34.0); MCHC 32.8 g/dL (28.0-37.0); RBC 3.09 mil/uL (4.50-6.00); RDW 17.8 % (10.5-14.5); WBC 26.5 thou/uL (4.0-11.0)
[2017-09-22 06:07] LABS: MCV 81.8 fL (80.0-100.0); PLATELET COUNT 223 thou/uL (150-400)
[2017-09-22 08:26] LABS: ABSOLUTE NEUTROPHILS 24.6 thou/uL (1.4-8.2); PLATELET ESTIMATE NORMAL
[2017-09-22 11:08] LABS: KAPPA FREE LIGHT CHAINS 144.1 mg/L (3.3-19.4); KAPPA/LAMBDA RATIO 2.4 (0.26-1.65); LAMBDA FREE LIGHT CHAINS 60.1 mg/L (5.7-26.3)
[2017-09-22 13:12] LABS: URINE PROTEIN (MG/DL) 80.7 mg/dL (Not Estab.)
[2017-09-22 16:42] LABS: MAGNESIUM 1.7 mg/dL (1.8-2.4); POTASSIUM 3.2 mmol/L (3.5-5.1)
[2017-09-23] VITALS: BP 130/69
[2017-09-23 00:15] LABS: MAGNESIUM 2.3 mg/dL (1.8-2.4)
[2017-09-23 00:26] LABS: POTASSIUM 4.2 mmol/L (3.5-5.1)
[2017-09-23 04:00] VITALS: BP 94/56
[2017-09-23 05:22] LABS: HEMATOCRIT 21.5 % (42.0-52.0); HEMOGLOBIN 7.1 gm/dL (14.0-18.0); MCHC 32.8 g/dL (28.0-37.0); MCV 82.2 fL (80.0-100.0); PLATELET COUNT 199 thou/uL (150-400); RBC 2.62 mil/uL (4.50-6.00); RDW 18.1 % (10.5-14.5); WBC 18.9 thou/uL (4.0-11.0)
[2017-09-23 05:36] LABS: ALBUMIN 2.1 g/dL (3.4-5.0); CREATININE 1.5 mg/dL (0.7-1.3); PHOSPHORUS 0.8 mg/dL (2.5-4.9)
[2017-09-23 07:29] LABS: ABSOLUTE NEUTROPHILS 14.6 thou/uL (1.4-8.2)
[2017-09-23 07:31] LABS: ANISOCYTOSIS 2+
[2017-09-23 11:48] VITALS: BP 137/67
[2017-09-23 20:00] VITALS: BP 135/43
[2017-09-24 06:14] LABS: HEMOGLOBIN 6.6 gm/dL (14.0-18.0); MCHC 33.1 g/dL (28.0-37.0); MCV 81.4 fL (80.0-100.0); RBC 2.46 mil/uL (4.50-6.00); RDW 18.4 % (10.5-14.5); WBC 11.6 thou/uL (4.0-11.0)
[2017-09-24 06:16] VITALS: BP 129/65
[2017-09-24 06:34] LABS: ANION GAP 6 mmol/L (7-16); BUN 21 mg/dL (7-18); CALCIUM 7.8 mg/dL (8.5-10.1); CHLORIDE 111 mmol/L (98-107); CHOLESTEROL 92 mg/dL (<200); CO2 26 mmol/L (21-32); CREATININE 1.1 mg/dL (0.7-1.3); GLUCOSE 130 mg/dL (74-106); HDL CHOLESTEROL 36 mg/dL (>40); LDL CHOLESTEROL 35 mg/dL (<100); PHOSPHORUS 1.1 mg/dL (2.5-4.9); POTASSIUM 3.4 mmol/L (3.5-5.1); SODIUM 143 mmol/L (136-145); TC:HDL 2.6 Ratio (Not establshd); TRIGLYCERIDE 109 mg/dL (<150); VLDL 22 mg/dL (<40)
[2017-09-24 07:35] VITALS: BP 101/52
[2017-09-24 10:08] LABS: GLOBULIN TOTAL 3.1 g/dL (2.2-3.9); M-SPIKE Not Observed g/dL (Not Observed)
[2017-09-24 12:17] VITALS: BP 112/61; BP 119/61
[2017-09-24 20:13] VITALS: BP 141/73
[2017-09-24 21:19] VITALS: BP 152/71
[2017-09-25 04:23] VITALS: BP 136/80
[2017-09-25 04:27] VITALS: BP 136/83
[2017-09-25 06:22] LABS: HEMATOCRIT 24.7 % (42.0-52.0); HEMOGLOBIN 8.1 gm/dL (14.0-18.0); MCH 27.8 pg (26.0-34.0); MCHC 32.9 g/dL (28.0-37.0); MCV 84.6 fL (80.0-100.0); RBC 2.93 mil/uL (4.50-6.00); RDW 17.9 % (10.5-14.5); WBC 13.1 thou/uL (4.0-11.0)
[2017-09-25 06:42] LABS: ALBUMIN 2.1 g/dL (3.4-5.0); CALCIUM 7.7 mg/dL (8.5-10.1); CREATININE 1.1 mg/dL (0.7-1.3); PHOSPHORUS 1.7 mg/dL (2.5-4.9); POTASSIUM 3.8 mmol/L (3.5-5.1)
[2017-09-25 07:55] VITALS: BP 112/57
[2017-09-25] MEDS ORDERED: CLOPIDOGREL75 MG PO (09:35)
[2017-09-25 11:30] VITALS: BP 143/67
[2017-09-25 22:42] VITALS: BP 100/53
[2017-09-26 07:00] LABS: HEMATOCRIT 25.3 % (42.0-52.0); HEMOGLOBIN 8.5 gm/dL (14.0-18.0)
[2017-09-26 07:19] LABS: DIRECT BILIRUBIN < 0.1 mg/dL (<0.1-0.3); SGOT 25 U/L (15-37); SGPT 25 U/L (30-65); TOTAL BILIRUBIN 0.2 mg/dL (<0.1-1.0); TOTAL PROTEIN 5.9 g/dL (6.4-8.2)
[2017-09-26 08:00] VITALS: BP 126/76
[2017-09-26 20:10] VITALS: BP 121/70
[2017-09-27 07:41] VITALS: BP 120/72
[2017-09-27 20:00] VITALS: BP 105/59
[2017-09-28 08:38] VITALS: BP 106/61
[2017-09-28 20:03] VITALS: BP 114/70
[2017-09-29 07:42] LABS: ABSOLUTE NEUTROPHILS 11.1 thou/uL (1.4-8.2); BASOPHILS 0.4 % (0.0-2.0); EOSINOPHILS 2.7 % (0.0-3.0); HEMATOCRIT 27.5 % (42.0-52.0); HEMOGLOBIN 9.1 gm/dL (14.0-18.0); LYMPHOCYTES 9.7 % (24.0-44.0); MCH 27.6 pg (26.0-34.0); MCV 83.8 fL (80.0-100.0); MONOCYTES 8.5 % (1.0-8.0); PLATELET COUNT 227 thou/uL (150-400); POLYS 78.7 % (36.0-66.0); RBC 3.28 mil/uL (4.50-6.00); RDW 18.4 % (10.5-14.5); WBC 14.1 thou/uL (4.0-11.0)
[2017-09-29 07:57] VITALS: BP 107/69
[2017-09-29 08:34] LABS: ANISOCYTOSIS 2+; MICROCYTES 2+; PLATELET ESTIMATE NORMAL
[2017-09-29 08:35] LABS: SCHISTOCYTES FEW
== END 2017-09-29 15:05 | DRG 871 ==
LOC: ER 15:56 → ICU 17:45 → EROBS 17:45 → ICU 19:26 → 4E 09-23 16:43 → SICU 09-25 18:24
PROVIDERS: Emergency Medicine; Hospitalist; Internal Medicine Gastroenterology; Internal Medicine Infectious Disease; Internal Medicine Nephrology; Internal Medicine Pulmonary Disease; Specialist
DX: A41.9 Sepsis, unspecified organism (principal); J18.9 Pneumonia, unspecified organism; R65.21 Severe sepsis with septic shock; J96.21 Acute and chronic respiratory failure with hypoxia; N17.0 Acute kidney failure with tubular necrosis; G92 Toxic encephalopathy; E43 Unspecified severe protein-calorie malnutrition; I63.9 Cerebral infarction, unspecified; D62 Acute posthemorrhagic anemia; K63.3 Ulcer of intestine; Z68.1 Body mass index [BMI] 19.9 or less, adult; E83.52 Hypercalcemia; J84.10 Pulmonary fibrosis, unspecified; I25.10 Atherosclerotic heart disease of native coronary artery without angina pectoris; I95.9 Hypotension, unspecified; E79.0 Hyperuricemia without signs of inflammatory arthritis and tophaceous disease; E11.51 Type 2 diabetes mellitus with diabetic peripheral angiopathy without gangrene; K57.90 Diverticulosis of intestine, part unspecified, without perforation or abscess without bleeding; K44.9 Diaphragmatic hernia without obstruction or gangrene; K29.40 Chronic atrophic gastritis without bleeding; Z60.2 Problems related to living alone; K22.70 Barrett's esophagus without dysplasia; K59.00 Constipation, unspecified; K63.5 Polyp of colon; Z89.429 Acquired absence of other toe(s), unspecified side; Z95.1 Presence of aortocoronary bypass graft; Z87.891 Personal history of nicotine dependence; Z79.899 Other long term (current) drug therapy; Z83.3 Family history of diabetes mellitus; Z79.82 Long term (current) use of aspirin
CPT/HCPCS: 10078; 10183; 15000; 15002; 62110; 62900